=== PATIENT | male | born 1970 | race Hispanic/Latino ===

== ENCOUNTER 2022-06-08 08:48 | Emergency (ER) | payer OTHER, SELFPAY ==
[2022-06-08] VITALS (10 sets, daily range): BP systolic 143–156; BP diastolic 99–111; PULSE 94–98; RESP 14–26; TEMP 36.3; O2SAT 94–100
--- NOTE | ~2022-06-08 | XR_ITS ---
EXAMINATION: XR chest 1V portable DATE: 06/08/2022 09:21 INDICATION: Upper respiratory tract infection presenting with cough and congestion TECHNIQUE: frontal view of the chest was obtained. COMPARISON: Chest CT dated 03/15/2009 FINDINGS: The lungs are clear with no focal airspace opacities, pulmonary edema, pleural effusion or pneumothor ax. The cardiomediastinal silhouette is normal. Minimal upper thoracic levocurvature. IMPRESSION: 1. No acute cardiopulmonary disease. Reviewed, dictated and finalized at location B.
--- NOTE | 2022-06-08 09:03 | ED.URI ---
HPI - URI/Sore Throat General Chief Complaint: Upper Respiratory Infection <JOHAN Wyatt Last Filed: 06/08/22 10:34> Stated Complaint: cough, congestion, pain with cough, <JOHAN Wyatt Last Filed: 06/08/22 10:34> Time Seen by Provider: 06/08/22 08:56 <JOHAN Wyatt Last Filed: 06/08/22 10:34> Source: patient <JOHAN Wyatt Last Filed: 06/08/22 10:34> Mode of arrival: ambulatory <JOHAN Wyatt Last Filed: 06/08/22 10:34> Limitations: no limitations <JOHAN Wyatt Last Filed: 06/08/22 10:34> History of Present Illness HPI Narrative: Patient is a 51 y/o male who presents to the ED with c/o URI symptoms. Patient reports having dry cough, congestion, runny nose, sore throat, sneezing since Saturday night. He has only been using Vicks for his symptoms. Last night, he reported having pain in his lower midsternal chest/lower ribs with coughing or sneezing. The pain continued today which prompted him to go to urgent care. He tested negative for strep, influenza, COVID at the but was referred here. Denies any chest pain at rest. Denies SOB. Denies Hx of heart disease. Denies fever, abdominal pain, nausea, vomiting. <JOHAN Wyatt Last Filed: 06/08/22 10:34> Related Data Allergies/Adverse Reactions: Allergies Allergy/AdvReac Type Severity Reaction Status Date / Time NONE PER PT Allergy Other Uncoded 06/08/22 09:04 <JOHAN Wyatt Last Filed: 06/08/22 10:34> Review of Systems Review of Systems: CONSTITUTIONAL: Denies fever, chills, or sweats. ENT: Reports rhinorrhea, congestion, sore throat, sneezing. CARDIOVASCULAR: Denies chest pain at rest. RESPIRATORY: Reports dry cough. Denies dyspnea. GASTROINTESTINAL: Denies abdominal pain, nausea, vomiting. MUSCULOSKELETAL: Reports rib pain with coughing/sneezing. <Margaret Flor PA-C - Last Filed: 06/08/22 10:34> All systems reviewed & are unremarkable except as noted in HPI and below <Margaret Flor PA-C - Last Filed: 06/08/22 10:34> PMFSH Past Medical History Medical History: Medical History (Updated 06/08/22 @ 10:01 by Margaret Flor PA-C) Diabetes mellitus Mixed hyperlipidemia Polycythemia vera <Margaret Flor PA-C - Last Filed: 06/08/22 10:34> Surgical History Surgical History: Surgical History (Updated 06/08/22 @ 09:20 by Margaret Flor PA-C) History of dental surgery <Margaret Flor PA-C - Last Filed: 06/08/22 10:34> Social History Social History: Social History Smoking status: Never smoker Alcohol intake: never <Margaret Flor PA-C - Last Filed: 06/08/22 10:34> Exam Narrative: GENERAL: Well appearing, well-nourished, non-toxic, in no acute distress. HEAD: Normocephalic, atraumatic. EYES: PERRL/EOMI, conjunctivae clear bilaterally. NOSE: Normal, no drainage. THROAT: Pharynx clear, minimal posterior erythema, no hypertrophy or exudate. MMs moist. NECK: Supple. No adenopathy, no masses. RESPIRATORY: Airway patent, respirations nonlabored. Clear to auscultation bilaterally, no rales, rhonchi, wheezing. Frequent coughing on exam. CARDIOVASCULAR: Regular rate and rhythm without murmurs, rubs, or gallops. Radial pulses 2+ and equal bilaterally. ABDOMINAL: Soft, nontender, nondistended, no hepatosplenomegaly. Normoactive BS. MUSCULOSKELETAL: Moves all extremities. Strength/ROM intact without gross deformities or TTP. No edema. No calf tenderness. Mild tenderness to palpation throughout anterior midsternal chest wall. SKIN: Warm, dry, normal color. No rashes. NEURO: A&O X3. Speech clear. Cranial nerves II-XII grossly intact. Steady gait. No ataxic movements. PSYCHIATRIC: Appropriate mood and affect. Normal interaction. <Margaret Flor PA-C - Last Filed: 06/08/22 10:34> Cou
--- NOTE | 2022-06-08 09:04 | ECG_ITS ---
Measurements Intervals [place] Rate: 96 P: 34 CO: 166 QRS: -6 QRSD: 75 T: 65 QT: 327 QTc: 414 Interpretive Statements SINUS RHYTHM POSSIBLE SEPTAL MYOCARDIAL INFARCTION , OLD [40+ ms Q WAVE IN V1/V2] ABNORMAL ECG NO PREVIOUS ECG AVAILABLE FOR COMPARISON Electronically Signed On 06-08-2022 15:39:48 CDT by Dinesh Hill M.D.
--- NOTE | 2022-06-08 09:18 | PC.NURSE ---
xray at bedside
[2022-06-08] MEDS: KETOROLAC (*BKC) 60 MG/2 ML VIAL IM (09:53)
--- NOTE | 2022-06-08 10:27 | PC.NURSE ---
ERPA aware of blood pressure readings. Okay with discharge and follow up with PCP
== END 2022-06-08 10:28 | disposition home or self-care (01) ==
PROVIDERS: Emergency Provider Emergency Medicine; PCP Family Medicine
DX: J06.9 Acute upper respiratory infection, unspecified (principal); E78.2 Mixed hyperlipidemia; E11.9 Type 2 diabetes mellitus without complications; D45 Polycythemia vera; R94.31 Abnormal electrocardiogram [ECG] [EKG]
CPT/HCPCS: 71045; 93005; 96372; 99283; J1885

== ENCOUNTER 2022-09-19 08:06 | Outpatient (CLI) | payer OTHER, SELFPAY ==
--- NOTE | ~2022-09-19 | XR_ITS ---
AP and lateral views of the right hip Clinical history: Pain Findings: No acute fracture or dislocation is seen. Osseous alignment is anatomic. Right hip and righ t SI joint are preserved. Soft tissues are unremarkable. Impression: No significant abnormality is seen. Reviewed, dictated and finalized at [facility]. LAYER Impression: No significant abnormality is seen.
--- NOTE | ~2022-09-19 | XR_ITS ---
Lumbosacral Spine: AP, oblique, and lateral views Clinical History: Pain Findings: The normal lordotic curve is maintained. The vertebral bodies and posterior elements are i ntact. The intervertebral disc spaces are preserved. The sacroiliac joints are normally outlined. Impression: No significant abnormality. Reviewed, dictated and finalized at [facility]. [employer]ELOPER [employer] Impression: No significant abnormality.
== END 2022-09-19 08:07 | disposition home or self-care (01) ==
PROVIDERS: PCP Family Medicine; Visit Provider Nurse Practitioner Gerontology
DX: M25.559 Pain in unspecified hip (principal); M54.9 Dorsalgia, unspecified
CPT/HCPCS: 72110; 73502

== ENCOUNTER 2024-07-20 12:10 | Observation (INO) | payer OTHER, SELFPAY ==
--- NOTE | ~2024-07-20 | CT_ITS ---
CTA brain carotid Ordering provider: Margaret Flor PA-C History: . dizziness, tingling/numbness R side face, PLASCENCIA . Comparison: Is Technique: CT angiogram head and neck was performed following timed intravenous injection of contrast . Thin slice axial images and reformatted coronal images were obtained. Three dimensional reformatted images of the brain were also obtained using a [employer] workstation. Radiation reduction technique utilized. The dose-length product was 1114.17 mGy-cm. 100 mL Omnipaque 350 was given IV. FINDINGS: HEAD: --ANTERIOR AND MIDDLE CEREBRAL ARTERIES AND BRANCHES: Normal caliber and contour. --INTERNAL CAROTID ARTERIES: no significant stenosis. No occlusion. --BASILAR ARTERY AND BRANCHES: Normal caliber and contour. No atheromatous disease. --POSTERIOR CEREBRAL ARTERIES: Normal caliber and contour --POSTERIOR COMMUNICATING ARTERIES: The right is seen and continues as posterior cerebral artery. The left is not visualized which is probably related to congenital absence or small size. --ANEURYSM: None visualized. --BRAIN: Please refer to report of CT head performed the same day. --BONES AND SUPERFICIAL SOFT TISSUES: Please refer to report of CT head performed the same day. --PARANASAL SINUSES AND MASTOIDS: Bilateral maxillary sinus disease. NECK: --RIGHT CERVICAL CAROTID SYSTEM: Normal caliber and contour. Percent stenosis per NASCET criteria is 0%. No carotid dissection. Otherwise, no significant atheromatous disease or stenosis of the cervica l carotid system. --LEFT CERVICAL CAROTID SYSTEM: Normal caliber and contour. Percent stenosis per NASCET criteria is 0%. No carotid dissection. Otherwise, no significant atheromatous disease or stenosis of the cervical carotid system. --VERTEBRAL ARTERIES: Normal caliber and contour. --VISUALIZED AORTIC ARCH AND BRANCHING VESSELS: no significant stenosis. --SOFT TISSUES: Normal. --CERVICAL SPINE: Age appropriate degenerative changes. IMPRESSION: 1. Normal CTA head and neck. Percent stenosis per NASCET criteria is 0%. Reviewed, dictated and finalized at location A. TRUCK OPERATOR
--- NOTE | ~2024-07-20 | XR_ITS ---
XR chest 1V Ordering provider: Margaret Flor PA-C History: 53 years Male with . R. facial droop, numbness . Comparison: None. FINDINGS: MEDIASTINUM: The cardiac silhouette is not enlarged. LUNGS: No infiltrates, effusions or pneumothorax. OTHER: No free air under the diaphragm. IMPRESSION: No acute cardiopulmonary pathology. Reviewed, dictated and finalized at location A. H WAGON OPERATOR
--- NOTE | ~2024-07-20 | CT_ITS ---
CT brain wo con Ordering provider: Margaret Flor PA-C History: 53 years Male with . R facial droop/numbness . Comparison: None. Technique: CT of the head without contrast. Radiation reduction technique utilized.The dose-length pr oduct was 605.33 mGy-cm. FINDINGS: BRAIN PARENCHYMA AND CSF SPACES: No midline shift, mass effect or hemorrhage. The brain parenchyma a nd CSF spaces are otherwise normal. VISUALIZED PARANASAL SINUSES: Well aerated. MASTOIDS: Well aerated. BONES: The bones appear intact. SOFT TISSUES: Visualized nasopharynx is normal. Superficial soft tissues are normal. IMPRESSION: No acute intracranial findings. Reviewed, dictated and finalized at location A. H ELECTRICIAN
--- NOTE | ~2024-07-20 | MR_ITS ---
EXAMINATION: MR brain/brain stem wo/w con DATE: 07/21/2024 11:57 INDICATION: Paresthesias. Left hemiparesis. TECHNIQUE: Magnetic resonance imaging (MRI) of the brain and brainstem was performed without and with 18 mL MultiHance intravenous contrast. COMPARISON: Brain MRI 01/21/2018, head CT 07/20/2024 FINDINGS: There is no intracranial hemorrhage, acute infarction, or abnormal intracranial mass lesion . There are scattered areas of nonspecific increased T2-weighted signal intensity in the cerebral whi te matter, which is within normal limits for the patient's age. The ventricles are normal in size. Th ere is mild mucosal thickening in left maxillary sinus. The orbits are normal. There is a trace left mastoid effusion. IMPRESSION: 1. Normal aging brain. Reviewed, dictated and finalized at location A. FIC SERGEANT IMPRESSION: 1. Normal aging brain.
[2024-07-20 12:30] VITALS: BP 145/99; PULSE 89; RESP 17; TEMP 36.6; O2SAT 97
--- NOTE | 2024-07-20 12:34 | ECG_ITS ---
Test Date: 2024-07-20 17:07:09 Measurements Intervals [place] Rate: 90 P: 44 CO: 160 QRS: -28 QRSD: 72 T: 78 QT: 326 QTc: 399 Interpretive Statements SINUS RHYTHM DELAYED PRECORDIAL R/S TRANSITION INFERIOR INFARCT, AGE INDETERMINATE ABNORMAL ECG No previous ECG available for comparison Electronically Signed On 07-20-2024 19:11:13 [employer]ACHINE by Rogerio Colunga D.O.
--- NOTE | 2024-07-20 14:36 | ED.NEUROSD ---
HPI - Neuro Symptoms/Deficit General Chief Complaint: Neuro Symptoms/Deficit <JOHAN Wyatt Last Filed: 07/24/24 17:34> Stated Complaint: facial droop r side, numbness started when woke up <JOHAN Wyatt Last Filed: 07/24/24 17:34> Time Seen by Provider: 07/20/24 14:36 <JOHAN Wyatt Last Filed: 07/24/24 17:34> Focused HPI: Patient is a 53 y/o male who presents to the ED with c/o tingling to the R side of his face. Patient reports he woke up around 0415 this morning with tingling and a numbness sensation in his R sided face. States his R sided face feels weak and droopy. He also reports a diffuse PLASCENCIA since waking up. He took aspirin and gabapentin for this w/o improvement. Reports tingling in his hands and feet bilaterally. Denies weakness of extremities. States he has had similar sx's in the past which affected his L side. Was thought to be r/t to PLASCENCIA. Reports difficulty focusing, mild dizziness, twitching of his R eye, intermittent shooting pain in his R triceps region. Denies CP, SOB, slurred speech, confusion. GENERAL: Well-appearing, obese with BMI of 30.6, and in no acute distress. HEAD: Normocephalic, atraumatic. CHEST: Clear to auscultation. ?No respiratory distress. HEART: Regular rate and rhythm.? NEURO: ?Alert and oriented x3. CN 2-12 intact. No focal deficits. Moves all extremities equally. Subjective decreased sensation to right-sided face. No facial droop. Patient screened in triage and initial orders placed.? ?Additional care and disposition to be based upon?diagnostic testing and treatment. <JOHAN Wyatt Last Filed: 07/24/24 17:34> Source: patient <JOHAN Wyatt Last Filed: 07/24/24 17:34> Mode of arrival: ambulatory <JOHAN Wyatt Last Filed: 07/24/24 17:34> Limitations: no limitations <Margaret Flor PA-C - Last Filed: 07/24/24 17:34> Related Data Allergies/Adverse Reactions: Allergies Allergy/AdvReac Type Severity Reaction Status Date / Time No Known Allergies Allergy Verified 09/19/22 07:19 <JOHAN Wyatt Last Filed: 07/24/24 17:34> Review of Systems Review of Systems: CONSTITUTIONAL: Denies fever EYES: Denies visual changes SKIN: Denies rash NEUROLOGIC: Reports headache, numbness, weakness. <JOHAN Banuelos Last Filed: 07/24/24 17:59> All systems reviewed & are unremarkable except as noted in HPI and below <Riya Banda PA-C - Last Filed: 07/24/24 17:59> [facility] Past Medical History Medical History: Medical History Abnormal EKG Anxiety and depression Arm paresthesia, left Back pain Colon cancer screening Diabetes mellitus Erectile dysfunction Hip pain Mixed anxiety and depressive disorder Mixed hyperlipidemia Neuropathy New onset type 2 diabetes mellitus Polycythemia vera Vertigo <JOHAN Wyatt Last Filed: 07/24/24 17:34> Surgical History Surgical History: Surgical History (Updated 07/21/24 @ 00:05 by Dennis Mills APRN) History of dental surgery <JOHAN Wyatt Last Filed: 07/24/24 17:34> Family History Family History: Family History Mother Epilepsy Cerebrovascular accident Cancer Acute myocardial infarction <JOHAN Wyatt Last Filed: 07/24/24 17:34> Social History Social History: Social History Social History: Smoking status: Never smoker Second hand tobacco smoke exposure: No Alcohol intake: current Drinks per week: 1 Substance use: never Substance use type: does not use Do You Feel Safe in your Home?: Yes Lack of Transportation: No Lack of Food: Never True Current Housing: I Have Housing Concerned About Future Housing: No Difficulty Paying Gas/Electric Bills: No Difficulty Paying for Meds: No Currently Unemployed: No Education: High School Diploma/GED Difficulty w/ Childcare or Family Care: No Living arrangements: with family Occupation/Education: occupation Gender identity (if verbalized by the patient): Male Sexual Orientation (if Verbalized by the Patient): Straight or Heterosexual Spiritual care concerns: No <Margaret Flor PA-C - Last Filed: 07/24/24 17:34> Exam Narrative: GENERAL: Well-appearing, well-nourished, and in no acute distress. HEAD: Normocephalic, atraumatic. EYES: PERRLA and EOMI. ENT: Nares clear, no rhinorrhea or epistaxis. Mucous membranes moist. Oropharynx without tonsillar hypertrophy exudate or other lesions. Bilateral TMs pearly donovan non-bulging NECK: Supple. No adenopathy or masses. CHEST: Clear to auscultation. No respiratory distress. No wheezes rales or rhonchi HEART: Regular rate and rhythm. No murmur heard. Normal peripheral pulses. ABDOMEN: Soft, nontender, nondistended, normal active bowel sounds. EXTREMITIES: Normal range of motion. No edema. Strength equal in bilateral upper and lower extremities (5/5) SKIN: Warm, dry, no rash. NEURO: No focal deficits. Alert and oriented x3. Cranial nerves 2-12 grossly intact PSYCH: Normal mood and affect <Riya Banda PA-C - Last Filed: 07/24/24 17:59> Course Consultations Consultation #1: Spoke with Dr. Amaro about patient and workup who recommends admission for MRI for further evaluation <Riya Banda PA-C - Last Filed: 07/24/24 17:59> Consultation #2: Spoke with hospitalist about patient and workup who accepts admission <JOHAN Banuelos Last Filed: 07/24/24 17:59> Vital Signs Vital signs: Vital Signs Temperature 97.8 F 07/20/24 12:30 Pulse Rate 89 07/20/24 12:30 Respiratory Rate 17 07/20/24 12:30 Blood Pressure 145/99 H 07/20/24 12:30 Pulse Oximetry 97 07/20/24 12:30 Oxygen Delivery Room Air 07/20/24 12:30 Temperature 96.9 F L 07/21/24 14:00 Pulse Rate 75 07/21/24 14:00 Respiratory Rate 18 07/21/24 14:00 Blood Pressure 149/80 H 07/21/24 14:00 Pulse Oximetry 97 07/21/24 14:00 Oxygen Delivery Room Air 07/21/24 00:00 <Margaret Flor PA-C - Last Filed: 07/24/24 17:34> Vital Signs Temperature 97.8 F 07/20/24 12:30 Pulse Rate 89 07/20/24 12:30 Respiratory Rate 17 07/20/24 12:30 Blood Pressure 145/99 H 07/20/24 12:30 Pulse Oximetry 97 07/20/24 12:30 Oxygen Delivery Room Air 07/20/24 12:30 Temperature 96.9 F L 07/21/24 14:00 Pulse Rate 75 07/21/24 14:00 Respiratory Rate 18 07/21/24 14:00 Blood Pressure 149/80 H 07/21/24 14:00 Pulse Oximetry 97 07/21/24 14:00 Oxygen Delivery Room Air 07/21/24 00:00 <JOHAN Banuelos Last Filed: 07/24/24 17:59> MDM - Neuro Symptoms/Deficit MDM Narrative Medical decision making narrative: MSE by SABAS in triage. <JOHAN Wyatt Last Filed: 07/24/24 17:34> MSE by SABAS in triage. patient presents to the emergency department for paresthesias ongoing today. History of uncontrolled diabetes, hypertension, hyperlipidemia. CBC metabolic panel without concerning findings. His blood sugar is quite elevated. He does admit to not having taking any antidiabetic medications for some time. CT brain as well as CTA head and neck without acute findings. Spoke with Dr. Amaro about patient and workup who recommends admission for MRI for further evaluation. Spoke with hospitalist about patient and workup who accepts admission <Riya Banda PA-C - Last Filed: 07/24/24 17:59> Differential Diagnosis Differential diagnosis: Likely subarachnoid hemorrhage, peripheral neuropathy, cerebrovascular accident, multiple sclerosis and transient cerebral ischemia <JOHAN Banuelos Last Filed: 07/24/24 17:59> Lab Data Attestation: I reviewed the patient's lab results. <Riya Banda PA-C - Last Filed: 07/24/24 17:59> Result diagrams: 07/21/24 06:08 07/21/24 06:08 <Margaret Flor PA-C - Last Filed: 07/24/24 17:34> Labs: Lab Results 07/20/24 Range/Units 14:44 WBC 6.3 (4.5-10.0) K/mm3 RBC 5.63 (4.6-6.20) M/mm3 Hgb 18.7 H (14.0-18.0) g/dL Hct 52.7 H (42.0-52.0) % MCV 93.6 (80-100) fl MCH 33.2 (26-34) pg MCHC 35.5 (32-36) g/dl RDW 14.3 (11.5-14.5) % Plt Count 201 (150-375) k/mm3 MPV 9.9 (7.4-10.4) fl Immature Gran % (Auto) 0.2 (0-0.5) % Neut % (Auto) 61.0 (45.5-73.1) % Lymph % (Auto) 28.8 (18.3-44.2) % [place] % (Auto) 6.2 (2.6-8.5) % Eos % (Auto) 3.3 (0-4.4) % Baso % (Auto) 0.5 (0.2-1.2) % Lymph # (Auto) 1.82 (0.9-3.2) K/mm3 [place] # (Auto) 0.4 (0.1-0.6) K/mm3 Eos # (Auto) 0.2 (0-0.3) K/mm3 Baso # (Auto) 0.0 (0.0-0.1) K/mm3 Abs Immat Gran (auto) 0.01 (0.00-0.031) K/mm3 Absolute Neuts (auto) 3.9 (1.3-6.7) K/mm3 Absolute Nucleated RBC 0.000 (0.0-0.012) K/mm3 Nucleated RBC % 0.0 (0.0-0.2) % PT 13.7 (11.1-14.7) Seconds INR 1.0 APTT 26.3 (22.3-36.8) Seconds Sodium 137 (137-145) mmol/L Potassium 4.5 (3.4-5.0) mmol/L Chloride 96 L (98-107) mmol/L Carbon Dioxide 32 H (22-30) mmol/L Anion Gap 9 (4-12) mmol/L BUN 17 (9-20) mg/dL Creatinine 0.90 (0.7-1.3) mg/dL Estim Creat Clear Calc 84 ml/min Estimated GFR > 60 (59 - ) Glucose 364 H (65-110) mg/dL Hemoglobin A1c 12.8 H (<5.7) % Calcium 9.7 (8.4-10.2) mg/dL Total Bilirubin 0.7 (0.2-1.3) mg/dL AST 33 (17-59) U/L ALT 52 H (6-50) U/L Alkaline Phosphatase 133 H (38-126) U/L Troponin I < 0.012 (0.000-0.034) ng/mL Total Protein 8.0 (6.3-8.2) g/dL Albumin 4.8 (3.5-5.1) g/dL <Margaret Flor PA-C - Last Filed: 07/24/24 17:34> Lab Results 07/20/24 Range/Units 14:44 WBC 6.3 (4.5-10.0) K/mm3 RBC 5.63 (4.6-6.20) M/mm3 Hgb 18.7 H (14.0-18.0) g/dL Hct 52.7 H (42.0-52.0) % MCV 93.6 (80-100) fl MCH 33.2 (26-34) pg MCHC 35.5 (32-36) g/dl RDW 14.3 (11.5-14.5) % Plt Count 201 (150-375) k/mm3 MPV 9.9 (7.4-10.4) fl Immature Gran % (Auto) 0.2 (0-0.5) % Neut % (Auto) 61.0 (45.5-73.1) % Lymph % (Auto) 28.8 (18.3-44.2) % [place] % (Auto) 6.2 (2.6-8.5) % Eos % (Auto) 3.3 (0-4.4) % Baso % (Auto) 0.5 (0.2-1.2) % Lymph # (Auto) 1.82 (0.9-3.2) K/mm3 [place] # (Auto) 0.4 (0.1-0.6) K/mm3 Eos # (Auto) 0.2 (0-0.3) K/mm3 Baso # (Auto) 0.0 (0.0-0.1) K/mm3 Abs Immat Gran (auto) 0.01 (0.00-0.031) K/mm3 Absolute Neuts (auto) 3.9 (1.3-6.7) K/mm3 Absolute Nucleated RBC 0.000 (0.0-0.012) K/mm3 Nucleated RBC % 0.0 (0.0-0.2) % PT 13.7 (11.1-14.7) Seconds INR 1.0 APTT 26.3 (22.3-36.8) Seconds Sodium 137 (137-145) mmol/L Potassium 4.5 (3.4-5.0) mmol/L Chloride 96 L (98-107) mmol/L Carbon Dioxide 32 H (22-30) mmol/L Anion Gap 9 (4-12) mmol/L BUN 17 (9-20) mg/dL Creatinine 0.90 (0.7-1.3) mg/dL Estim Creat Clear Calc 84 ml/min Estimated GFR > 60 (59 - ) Glucose 364 H (65-110) mg/dL Hemoglobin A1c 12.8 H (<5.7) % Calcium 9.7 (8.4-10.2) mg/dL Total Bilirubin 0.7 (0.2-1.3) mg/dL AST 33 (17-59) U/L ALT 52 H (6-50) U/L Alkaline Phosphatase 133 H (38-126) U/L Troponin I < 0.012 (0.000-0.034) ng/mL Total Protein 8.0 (6.3-8.2) g/dL Albumin 4.8 (3.5-5.1) g/dL <JOHAN Banuelos Last Filed: 07/24/24 17:59> Imaging Data Radiologist's impression: ITS Impressions Head CT 07/20/24 12:50 IMPRESSION: No acute intracranial findings. Chest X-Ray 07/20/24 12:58 IMPRESSION: No acute cardiopulmonary pathology. Head/Neck CTA 07/20/24 15:44 IMPRESSION: 1. Normal CTA head and neck. Percent stenosis per NASCET criteria is 0%. <Riya Banda PA-C - Last Filed: 07/24/24 17:59> Critical Care Time Critical Care Time Critical Care Time: No <Riya Banda PA-C - Last Filed: 07/24/24 17:59> Discharge Plan Discharge Clinical Impression: Paresthesia, Diabetes mellitus <Margaret Flor PA-C - Last Filed: 07/24/24 17:34> Patient Disposition: Still a Patient <JOHAN Wyatt Last Filed: 07/24/24 17:34> Condition: Stable <JOHAN Wyatt Last Filed: 07/24/24 17:34>
[2024-07-20 14:57] LABS: Basophils Percent Auto 0.5 % (0.2-1.2); Eosinophils Absolute Auto 0.2 K/mm3 (0-0.3); Eosinophils Percent Auto 3.3 % (0-4.4); Hematocrit 52.7 % (42.0-52.0); Hemoglobin 18.7 g/dL (14.0-18.0); Immature Granulocyte Absolute 0.01 K/mm3 (0.00-0.031); Immature Granulocyte Percent A 0.2 % (0-0.5); Lymphocytes Absolute Auto 1.82 K/mm3 (0.9-3.2); Lymphocytes Percent Auto 28.8 % (18.3-44.2); Mean Corpuscular HGB Conc 35.5 g/dl (32-36); Mean Corpuscular Hemoglobin 33.2 pg (26-34); Mean Corpuscular Volume 93.6 fl (80-100); Mean Platelet Volume 9.9 fl (7.4-10.4); Monocytes Absolute Auto 0.4 K/mm3 (0.1-0.6); Monocytes Percent Auto 6.2 % (2.6-8.5); Neutrophils Absolute Auto 3.9 K/mm3 (1.3-6.7); Platelet Count Result 201 k/mm3 (150-375); Red Blood Count 5.63 M/mm3 (4.6-6.20); Red Cell Distribution Width 14.3 % (11.5-14.5); White Blood Count 6.3 K/mm3 (4.5-10.0)
[2024-07-20 15:05] LABS: Prothrombin Time 13.7 Seconds (11.1-14.7)
[2024-07-20 15:06] LABS: Partial Thromboplastin Time 26.3 Seconds (22.3-36.8)
[2024-07-20 15:12] LABS: Alanine Aminotransferase 52 U/L (6-50); Albumin Level 4.8 g/dL (3.5-5.1); Alkaline Phosphatase 133 U/L (38-126); Anion Gap 9 mmol/L (4-12); Aspartate Amino Transferase 33 U/L (17-59); Bilirubin,Total 0.7 mg/dL (0.2-1.3); Blood Urea Nitrogen 17 mg/dL (9-20); Calcium 9.7 mg/dL (8.4-10.2); Carbon Dioxide 32 mmol/L (22-30); Chloride 96 mmol/L (98-107); Estimated CRCL calculation 84 ml/min; Estimated Glomerular Filt Rate > 60; Glucose 364 mg/dL (65-110); Potassium 4.5 mmol/L (3.4-5.0); Sodium 137 mmol/L (137-145)
[2024-07-20 15:23] LABS: Troponin I < 0.012 ng/mL (0.000-0.034)
[2024-07-20 19:39] VITALS: BP 143/92; PULSE 90; RESP 20; TEMP 36.8; O2SAT 97
[2024-07-20] MEDS: ACETAMINOPHEN 500 MG TABLET 1000 MG PO (20:04)
[2024-07-20] MEDS: diphenhydrAMINE HCl INJ 50 MG/ML VIAL 25 MG IV PUSH (20:05)
[2024-07-20] MEDS: METOCLOPRAMIDE HCL INJ 10 MG/2 ML VIAL IV PUSH (20:05)
[2024-07-20] MEDS: SODIUM CHLORIDE 0.9% IV 1,000 ML 999 ML IV CONT (20:05)
[2024-07-20 20:14] VITALS: BP 141/98; PULSE 89; RESP 16; O2SAT 99
[2024-07-20 21:16] LABS: Hemoglobin A1C 12.8 % (<5.7)
[2024-07-20 21:55] VITALS: BMI 30.6
[2024-07-20 22:00] VITALS: BP 143/81; PULSE 77; RESP 16; TEMP 36.3; O2SAT 92
--- NOTE | 2024-07-20 22:02 | P.HP_ITS ---
H&P: HPI History of Present Illness Date/Time: 07/20/24 22:02 Chief Complaint: Right-sided paresthesias, right facial numbness Narrative: This is a 53-year-old male patient with past medical history of polycythemia vera hypertension hyperlipidemia and type 2 diabetes who was previously on oral medications for his diabetes but once he got down to hemoglobin A1c of 7 he quit taking them. Patient actually quit taking all of his medications an undetermined length of time ago. Patient reports chronic numbness to the left side of his body stating it affects his entire left side of his body. Upon awakening on the morning of 1124 patient reported right-sided numbness around his face below his eye and maxilla area. He also noted numbness and tingling to his right hand and right foot. Workup in the emergency department significant for hyperglycemia of 364, mild hypertension, elevated hemoglobin and hematocrit with normal renal function. Hemoglobin A1c found to be highly elevated at 12.8%. Emergency department consulted with Neurology who recommended patient be admitted for MRI to rule out CVA. Review of Systems Review of Systems: All systems reviewed & are unremarkable except as noted in HPI and below PMFSH Past Medical History Medical History Abnormal EKG Anxiety and depression Arm paresthesia, left Back pain Colon cancer screening Diabetes mellitus Erectile dysfunction Hip pain Mixed anxiety and depressive disorder Mixed hyperlipidemia Neuropathy New onset type 2 diabetes mellitus Polycythemia vera Vertigo Surgical History Surgical History (Updated 07/21/24 @ 00:05 by Dennis Mlils APRN) History of dental surgery Family History Family History Mother Epilepsy Cerebrovascular accident Cancer Acute myocardial infarction Social History Social History Social History: Smoking status: Never smoker Second hand tobacco smoke exposure: No Alcohol intake: current Drinks per week: 1 Substance use: never Substance use type: does not use Do You Feel Safe in your Home?: Yes Lack of Transportation: No Lack of Food: Never True Current Housing: I Have Housing Concerned About Future Housing: No Difficulty Paying Gas/Electric Bills: No Difficulty Paying for Meds: No Currently Unemployed: No Education: High School Diploma/GED Difficulty w/ Childcare or Family Care: No Living arrangements: with family Occupation/Education: occupation Gender identity (if verbalized by the patient): Male Sexual Orientation (if Verbalized by the Patient): Straight or Heterosexual Spiritual care concerns: No Meds Home Medications and Allergies Home Medications Medication Instructions Recorded Confirmed Type blood-glucose sensor (FreeStyle #1 ea 09/19/22 07/20/24 Rx Ellen 3 Sensor device) blood-glucose sensor (Dexcom G6 #3 ea 09/24/22 07/20/24 Rx Sensor device) Allergies Allergy/AdvReac Type Severity Reaction Status Date / Time No Known Allergies Allergy Verified 09/19/22 07:19 Vital Signs Vital Signs - 24 hr 07/20/24 12:30 07/20/24 19:39 07/20/24 20:14 Temperature 36.6 C 36.8 C Pulse Rate 89 90 89 Respiratory Rate 17 20 16 Blood Pressure 145/99 H 143/92 H 141/98 H Pulse Oximetry 97 97 99 Oxygen Delivery Room Air Exam Narrative: GENERAL: Well-appearing, well-nourished, and in no acute distress. HEAD: Normocephalic, atraumatic. ENT:? Mucous membranes moist. CHEST: Clear to auscultation.? No respiratory distress. HEART: Regular rate and rhythm. ? Normal peripheral pulses. ABDOMEN: Soft, nontender, nondistended. EXTREMITIES: Normal range of motion. No peripheral edema. SKIN: Warm dry normal color NEURO: Alert and oriented x3.Moves all extremities well, 5/5 strength. No appreciable facial droop, numbness and tingling to hands feet and face. PSYCH: Normal mood and affect H&P: Results Labs Labs: Short CBC 07/20/24 Range/Units 14:44 WBC 6.3 (4.5-10.0) K/mm3 Hgb 18.7 H (14.0-18.0) g/dL Hct 52.7 H (42.0-52.0) % Plt Count 201 (150-375) k/mm3 BMP 07/20/24 14:44 Sodium 137 Potassium 4.5 Chloride 96 L Carbon Dioxide 32 H BUN 17 Creatinine 0.90 Glucose 364 H Calcium 9.7 Cardiac Enzymes 07/20/24 Range/Units 14:44 Troponin I < 0.012 (0.000-0.034) ng/mL Liver Function 07/20/24 Range/Units 14:44 Total Bilirubin 0.7 (0.2-1.3) mg/dL AST 33 (17-59) U/L ALT 52 H (6-50) U/L Alkaline Phosphatase 133 H (38-126) U/L Albumin 4.8 (3.5-5.1) g/dL Pulse Oximetry SpO2 results: 92-99% on room air Attestation: I personally reviewed and interpreted this pulse oximetry as follows: Interpretation: no need for supplemental oxygenation at this time ECG Attestation: I personally reviewed and interpreted this ECG as follows: ECG completion date: 07/20/24 ECG completion time: 17:07 Prior ECG tracings: not available for review Interpretation: sinus rhythm rate of 90 W[place] interval 160 QRS duration 72 QTC 399 QRS axis -28 physiologic left axis deviation, no STEMI or acute ischemic changes Imaging Chest x-ray: Radiologist's impression: XR chest 1V Ordering provider: Margaret Flor PA-C History: 53 years Male with . R. facial droop, numbness . Comparison: None. FINDINGS: MEDIASTINUM: The cardiac silhouette is not enlarged. LUNGS: No infiltrates, effusions or pneumothorax. OTHER: No free air under the diaphragm. IMPRESSION: No acute cardiopulmonary pathology. Reviewed, dictated and finalized at location A. GE CONTROL COORDINATOR CT scan - head: Radiologist's impression: CTA brain carotid Ordering provider: Margaret Flor PA-C History: . dizziness, tingling/numbness R side face, PLASCENCIA . Comparison: Is Technique: CT angiogram head and neck was performed following timed intravenous injection of contrast. Thin slice axial images and reformatted coronal images were obtained. Three dimensional reformatted images of the brain were also obtained using a [employer] workstation. Radiation reduction technique utilized. The dose-length product was 1114.17 mGy- cm. 100 mL Omnipaque 350 was given IV. FINDINGS: HEAD: --ANTERIOR AND MIDDLE CEREBRAL ARTERIES AND BRANCHES: Normal caliber and contour. --INTERNAL CAROTID ARTERIES: no significant stenosis. No occlusion. --BASILAR ARTERY AND BRANCHES: Normal caliber and contour. No atheromatous disease. --POSTERIOR CEREBRAL ARTERIES: Normal caliber and contour --POSTERIOR COMMUNICATING ARTERIES: The right is seen and continues as posterior cerebral artery. The left is not visualized which is probably related to congenital absence or small size. --ANEURYSM: None visualized. --BRAIN: Please refer to report of CT head performed the same day. --BONES AND SUPERFICIAL SOFT TISSUES: Please refer to report of CT head performed the same day. --PARANASAL SINUSES AND MASTOIDS: Bilateral maxillary sinus disease. NECK: --RIGHT CERVICAL CAROTID SYSTEM: Normal caliber and contour. Percent stenosis per NASCET criteria is 0%. No carotid dissection. Otherwise, no significant atheromatous disease or stenosis of the cervical carotid system. --LEFT CERVICAL CAROTID SYSTEM: Normal caliber and contour. Percent stenosis per NASCET criteria is 0%. No carotid dissection. Otherwise, no significant atheromatous disease or stenosis of the cervical carotid system. --VERTEBRAL ARTERIES: Normal caliber and contour. --VISUALIZED AORTIC ARCH AND BRANCHING VESSELS: no significant stenosis. --SOFT TISSUES: Normal. --CERVICAL SPINE: Age appropriate degenerative changes. IMPRESSION: 1. Normal CTA head and neck. Percent stenosis per NASCET criteria is 0%. Reviewed, dictated and finalized at location A. GE CONTROL COORDINATOR Assessment and Plan Assessment and plan (1) Numbness and tingling of right side of face: Code(s): R20.0 - Anesthesia of skin; R20.2 - Paresthesia of skin Status: Acute Assessment and Plan: -admit for MRI and Neurology consult to rule out CVA -aspirin given -chronic left sided numbness/tingling, new right sided same symptoms onset upon awakening 07/20/24 -uncontrolled diabetes, stopped meds when A1c got to 7 -ordered lipid panel, MRI, echo with bubble study for possible stroke workup (2) Polycythemia vera: Code(s): D45 - Polycythemia vera Status: Acute Assessment and Plan: -continue aspirin daily (3) Diabetes mellitus: Code(s): E11.9 - Type 2 diabetes mellitus without complications Status: Acute Assessment and Plan: -A1c 12.8 -no current medications -IV LR 100 mL/hr overnight -high dose SSI (4) Mixed hyperlipidemia: Code(s): E78.2 - Mixed hyperlipidemia Status: Acute Assessment and Plan: -Lipid panel in AM -patient previously on Crestor 5 mg (5) HTN (hypertension): Code(s): I10 - Essential (primary) hypertension Status: Acute Assessment and Plan: -not currently taking any medications -stopped all meds a while ago Plan consult condominium property manager diet: Carb consistent and heart healthy code status: Full code Quality VTE Prophylaxis VTE prophylaxis: pharmacologic ordered Dictation performed by [employer] direct speech recognition software, therefore electrode turner and finisher variants and typographical errors may occur. Hospitalist [facility] Advance Care Plan I have confirmed that the patient's Advanced Care Plan is present, code status is documented, or surrogate decision maker is listed in patient medical record.: Yes Medication Reconciliation I have utilized all available resources to obtain, update and review the patients current medications (includes all prescriptions, OTC, herbals, cannabis, and nutritional supplements).: Yes
--- NOTE | 2024-07-20 22:10 | PC.NURSE ---
Patient denies taking any home meds routinely; patient states he did take an 81mg ASA and a gabapentin today from an old prescription. Patient states he has a history of diabetes, does not check sugars at home and denies taking any medication to treat diabetes. Admission report provided to BOB Moon.
[2024-07-20 22:25] VITALS: BP 142/99; PULSE 99; RESP 17; TEMP 36.7; O2SAT 99
[2024-07-20] MEDS: LACTATED RINGERS 1,000 ML 100 ML IV CONT (23:56)
[2024-07-20] MEDS: ASPIRIN 81 MG CHEWABLE TABLET 324 MG PO (23:57)
--- NOTE | 2024-07-21 | ECHO_ITS ---
Patient Info Name: Dax Márquez Age: 53 years : 1970 Gender: Male Ht: 66 in Wt: 189 lbs BSA: 2.02 m2 HR: 76 bpm BP: 142 / 84 mmHg Heart Rhythm: Sinus Rhythm Technical Quality: Good Exam Date: 07/21/2024 3:06 PM Exam Location: Echo Lab Patient Status: Outpatient Admit Date: 07/20/2024 Staff Ordering Physician: Dennis Mills APRN Wet [employer] Sugar Bin Operator: Sondra Choe RDCS Attending Provider: Maria Guadalupe Mchugh APRN Referring Physician: Gene TREJO; Exam Type: CA echo doppler w bubble study Study Info Indications - stroke Complete two-dimensional, color flow and Doppler transthoracic echocardiogram is performed with agitated saline. Contrast/Agitated Saline Contrast/Ag. Saline: Agitated Saline Amount: 20.00 ml Existing IV Access: Yes IV Access Condition: patent with no signs of infiltration Summary 1. Left ventricular chamber dimension is normal. 2. Ventricular septum is sigmoid shaped. No resting LVOT obstruction. 3. Left ventricular systolic function is normal, estimated at 60-65%. 4. The left ventricular diastolic function is grade I diastolic dysfunction. 5. E/e' 10 is mildly elevated. 6. Left atrial chamber dimension is mildly enlarged. 7. There is mild aortic valve sclerosis. 8. There is mild aortic valve regurgitation. 9. There is trace mitral valve regurgitation. 10. No pulmonary hypertension, estimated pulmonary arterial systolic pressure is 23 mmHg. Left Ventricle E/e' 10 is mildly elevated. Ventricular septum is sigmoid shaped. No resting LVOT obstruction. Left ventricular chamber dimension is normal. Left ventricular systolic function is normal, estimated at 60-65%. The left ventricular diastolic function is grade I diastolic dysfunction. Right Ventricle Right ventricular systolic function is normal and with normal TAPSE 1.9 cm. Right ventricular chamber dimension is normal. Left Atria Left atrial chamber dimension is mildly enlarged. Right Atria Right atrial chamber dimension is normal. Atrial Septum Agitated saline injection with and without valsalva maneuver opacifed right side cardiac chambers without shunt to left side cardiac chambers. Intact interatrial septum visualized by 2D and agitated saline imaging. Aortic Valve The aortic valve is trileaflet. There is mild aortic valve sclerosis. There is no aortic valve stenosis. There is mild aortic valve regurgitation. Pulmonic Valve There is no pulmonic regurgitation. Mitral Valve There is no mitral valve stenosis. There is trace mitral valve regurgitation. Tricuspid Valve There is no tricuspid valve regurgitation. No pulmonary hypertension, estimated pulmonary arterial systolic pressure is 23 mmHg. Pericardium/Pleural There is no pericardial effusion. Inferior Vena Cava Normal inferior vena cava with >50% collapse upon inspiration consistent with normal right atrial pressure, 5 mmHg. Aorta The aortic root size at the sinus of Valsalva is normal. Left Ventricular Outflow Tract Name Value Normal LVOT 2D LVOT Diameter 2.0 cm LVOT Doppler LVOT Peak Gradient 4 mmHg LVOT Mean Gradient 2 mmHg LVOT VTI 18 cm LVOT VTI/AV VTI Ratio 0.8 LVOT Stroke Volume 58 ml LVOT CO 4.4 l/min LVOT CI 2.2 l/min/m2 Pulmonic Valve Name Value Normal RVOT Doppler RVOT Peak Gradient 2 mmHg PV Doppler PV Peak Gradient 3 mmHg PV Regurgitation Doppler OH Peak End Diastolic Velocity 76 cm/s Mitral Valve Name Value Normal MV Doppler MV Decel [place] 352 cm/s2 MV PHT 63 ms MV Area (PHT) 3.5 cm2 4.0-5.0 MV Diastolic Function MV E Peak Velocity 77 cm/s MV A Peak Velocity 103 cm/s MV E/A 0.7 MV Decel Time 218 ms MV Annular TDI MV E/e' (Septal) 13.0 <=8.0 MV E/e' (Lateral) 9.2 <=8.0 MV E/e' (Average) 11.1 Tricuspid Valve Name Value Normal TV Regurgitation Doppler TR Peak Velocity 212 cm/s TR Peak Gradient 18 mmHg Estimated PAP/RSVP RA Pressure 5 mmHg <=5 PA Systolic Pressure 23 mmHg <36 RV Systolic Pressure 23 mmHg <36 Aorta Name Value Normal Ascending Aorta Ao Root Diameter (MM) 3.1 cm Ao Root Diam Index (MM) 1.5 cm/m2 Aortic Valve Name Value Normal AV Doppler AV Peak Velocity 155 cm/s AV Peak Gradient 10 mmHg AV Mean Gradient 4 mmHg AV VTI 22 cm AV Area (Cont Eq VTI) 2.6 cm2 >=3.0 AV Area (Cont Eq Igor) 2.0 cm2 AV Regurgitation 2D LVOT Area 3.2 cm2 AV Regurgitation Doppler AR Decel Time 2,309 ms AR Decel [place] 182 cm/s2 AR PHT 670 ms Ventricles Name Value Normal LV Dimensions 2D/MM IVS Diastolic Thickness (2D) 1.0 cm 0.6-1.0 LVID Diastole (2D) 4.1 cm 4.2-5.8 LVIW Diastolic Thickness (2D) 0.8 cm 0.6-1.0 LVID Systole (2D) 2.8 cm 2.5-4.0 LVOT Diameter 2.0 cm LV Mass (2D Cubed) 120.31 g 88.00-224.00 LV Mass Index (2D Cubed) 59 g/m2 49-115 Relative Wall Thickness (2D) 0.41 LV Fractional Shortening/Ejection Fraction 2D/MM LV Fractional Shortening (2D) 32 % 25-43 LV EF (2D Teicholz) 60 % 52-72 LV Diastolic Volume (4C MOD) 65 ml LV EF (4C MOD) 56 % LV Diastolic Volume (2C MOD) 50 ml LV EF (2C MOD) 61 % LV Diastolic Volume (BP MOD) 57 ml 62-150 LV Diastolic Volume Index (BP MOD) 28 ml/m2 34-74 LV Systolic Volume (BP MOD) 24 ml 21-61 LV Systolic Volume Index (BP MOD) 12 ml/m2 11-31 LV EF (BP MOD) 58 % 52-72 LV Diastolic Length (4C) 7.6 cm LV Systolic Length (4C) 6.5 cm LV Stroke Volume (4C MOD) 36 ml Atria Name Value Normal LA Dimensions LA Dimension (MM) 4.0 cm 3.0-4.1 LA Volume (4C A-L) 36 ml LA Volume (BP A-L) 39 ml RA Dimensions RA Area (4C) 13.0 cm2 <=18.0 Report Signatures
[2024-07-21 02:05] LABS: Glucose Point of Care 320 mg/dl (65-105)
[2024-07-21 04:00] VITALS: PULSE 75
[2024-07-21 04:08] VITALS: BP 142/84; PULSE 76; RESP 16; TEMP 36.1; O2SAT 94
[2024-07-21 06:37] LABS: Basophils Percent Auto 0.5 % (0.2-1.2); Eosinophils Absolute Auto 0.3 K/mm3 (0-0.3); Eosinophils Percent Auto 4.7 % (0-4.4); Hematocrit 50.3 % (42.0-52.0); Hemoglobin 17.6 g/dL (14.0-18.0); Immature Granulocyte Absolute 0.02 K/mm3 (0.00-0.031); Immature Granulocyte Percent A 0.4 % (0-0.5); Lymphocytes Absolute Auto 1.59 K/mm3 (0.9-3.2); Lymphocytes Percent Auto 28.4 % (18.3-44.2); Mean Corpuscular Hemoglobin 32.9 pg (26-34); Mean Platelet Volume 9.9 fl (7.4-10.4); Monocytes Absolute Auto 0.4 K/mm3 (0.1-0.6); Monocytes Percent Auto 6.3 % (2.6-8.5); Neutrophils Absolute Auto 3.3 K/mm3 (1.3-6.7); Neutrophils Percent Auto 59.7 % (45.5-73.1); Platelet Count Result 184 k/mm3 (150-375); Red Blood Count 5.35 M/mm3 (4.6-6.20); White Blood Count 5.6 K/mm3 (4.5-10.0)
[2024-07-21 06:50] LABS: Alanine Aminotransferase 45 U/L (6-50); Albumin Level 4.1 g/dL (3.5-5.1); Alkaline Phosphatase 115 U/L (38-126); Anion Gap 7 mmol/L (4-12); Aspartate Amino Transferase 38 U/L (17-59); Bilirubin,Total 0.6 mg/dL (0.2-1.3); Blood Urea Nitrogen 16 mg/dL (9-20); Calcium 8.7 mg/dL (8.4-10.2); Carbon Dioxide 29 mmol/L (22-30); Chloride 103 mmol/L (98-107); Cholesterol 138 mg/dL (0-200); Estimated CRCL calculation 106 ml/min; Estimated Glomerular Filt Rate > 60; Glucose 266 mg/dL (65-110); HDL Direct 24 mg/dL; Magnesium 1.8 mg/dL (1.6-2.3); Potassium 4.1 mmol/L (3.4-5.0); Sodium 139 mmol/L (137-145); Triglycerides 382 mg/dL (<150)
[2024-07-21 07:00] LABS: LDL Cholesterol Direct 54 mg/dL
[2024-07-21 08:00] VITALS: PULSE 79
[2024-07-21 08:30] VITALS: BP 144/98; PULSE 77; RESP 20; TEMP 35.7; O2SAT 96
[2024-07-21] MEDS: ACETAMINOPHEN 325 MG TABLET 650 MG PO (08:37)
[2024-07-21] MEDS: ASPIRIN 81 MG ENTERIC TABLET PO (08:37)
[2024-07-21] MEDS: ENOXAPARIN 40 MG/0.4 ML SYRINGE SUB-Q (08:37)
[2024-07-21] MEDS: LACTATED RINGERS 1,000 ML 100 ML IV CONT (08:41)
[2024-07-21 08:46] LABS: Glucose Point of Care 287 mg/dl (65-105)
[2024-07-21] MEDS: INSULIN ASPART (*BKC) 100 UNITS/ML SUB-Q ×2 (08:48→12:47)
[2024-07-21] MEDS: INSULIN GLARGINE (*BKC) 100 UNITS/ML 17 UNITS SUB-Q (08:49)
[2024-07-21 09:30] VITALS: BMI 30.6
[2024-07-21 12:30] LABS: Glucose Point of Care 318 mg/dl (65-105)
[2024-07-21 14:00] VITALS: BP 149/80; PULSE 75; RESP 18; TEMP 36.1; O2SAT 97
--- NOTE | 2024-07-21 14:20 | P.CONNEU_ITS ---
Assessment and Plan Assessment and plan (1) Diabetes mellitus: Code(s): E11.9 - Type 2 diabetes mellitus without complications Status: Acute (2) Polycythemia vera: Code(s): D45 - Polycythemia vera Status: Acute (3) TIA (transient ischemic attack): Code(s): G45.9 - Transient cerebral ischemic attack, unspecified Status: Acute Plan 1. TIA 2. Most likely diabetic neuropathy patient needs to be continued on aspirin 81mg daily, lisinopril 1 tablet every day for the hypertension rosuvastatin for the treatment of hypercholesterolemia and also he needs to be scheduled for EMG nerve conduction study of the upper extremities as an outpatient to rule out the possibility of early neuropathy. If any further questions arise please do not hesitate to contact me. Consult date: 07/21/24 HPI: Dax Márquez is a 53 year old male Has been admitted to the hospital through the emergency room for the complaints of right-sided facial droop and numbness on the right side of the face as well as per the information available he woke up around 0415 in the morning when he was experiencing tingling and numbness on his right side of the face and the face was also droopy he at the same time had a diffuse headache he took aspirin and gabapentin subsequently he developed tingling sensation in hands and feet though he did not become weak he has had a similar symptomatology in the past which affected on his left side of the body he also had difficulties in focusing mild dizziness which in the right eye intermittent shooting pain in his right triceps. He has been taking aspirin 81mg daily delayed release, he is not allergic to any medication, he does have ongoing history of diabetes mellitus with mixed hyperlipidemia as well as polycythemia vera. He is never a smoker never alcohol intake. On initial evaluation in the emergency room his vital signs were normal, CT scan of the hea d revealed no evidence of intracranial bleed, chest x-ray was negative, head and neck CTA was also negative with no evidence of large vessel involvement, and subsequently now MRI of the brain has also been done which is normal. Review of Systems Review of Systems: All systems reviewed & are unremarkable except as noted in HPI and below PMFSH Past Medical History Medical History Abnormal EKG Anxiety and depression Arm paresthesia, left Back pain Colon cancer screening Diabetes mellitus Erectile dysfunction Hip pain Mixed anxiety and depressive disorder Mixed hyperlipidemia Neuropathy New onset type 2 diabetes mellitus Polycythemia vera Vertigo Surgical History Surgical History (Updated 07/21/24 @ 00:05 by Dennis Mills APRN) History of dental surgery Family History Family History Mother Epilepsy Cerebrovascular accident Cancer Acute myocardial infarction Social History Social History Social History: Smoking status: Never smoker Second hand tobacco smoke exposure: No Alcohol intake: current Drinks per week: 1 Substance use: never Substance use type: does not use Do You Feel Safe in your Home?: Yes Lack of Transportation: No Lack of Food: Never True Current Housing: I Have Housing Concerned About Future Housing: No Difficulty Paying Gas/Electric Bills: No Difficulty Paying for Meds: No Currently Unemployed: No Education: High School Diploma/GED Difficulty w/ Childcare or Family Care: No Living arrangements: with family Occupation/Education: occupation Gender identity (if verbalized by the patient): Male Sexual Orientation (if Verbalized by the Patient): Straight or Heterosexual Spiritual care concerns: No Meds Home Medications and Allergies Home Medications Medication Instructions Recorded Confirmed Type blood-glucose sensor (FreeStyle #1 ea 09/19/22 07/20/24 Rx Ellen 3 Sensor device) blood-glucose sensor (Dexcom G6 #3 ea 09/24/22 07/20/24 Rx Sensor device) Allergies Allergy/AdvReac Type Severity Reaction Status Date / Time No Known Allergies Allergy Verified 09/19/22 07:19 Vital Signs Vital Signs - 24 hr 07/20/24 19:39 07/20/24 20:14 07/20/24 22:25 Temperature 36.8 C 36.7 C Pulse Rate 90 89 99 Respiratory Rate 20 16 17 Blood Pressure 143/92 H 141/98 H 142/99 H Pulse Oximetry 97 99 99 Oxygen Delivery 07/20/24 22:00 07/21/24 00:00 07/21/24 04:00 Temperature 36.3 C L Pulse Rate 77 75 Respiratory Rate 16 Blood Pressure 143/81 H Pulse Oximetry 92 Oxygen Delivery Room Air 07/21/24 04:08 07/21/24 08:00 Temperature 36.1 C L Pulse Rate 76 79 Respiratory Rate 16 Blood Pressure 142/84 H Pulse Oximetry 94 Oxygen Delivery Exam Narrative: Exam today revealed him to be awake alert cooperative in no obvious acute distress, his speech not dysphasic not dysarthric not dysphonic, pupils round regular feels the vision full extraocular movements full with no nystagmus facial sensation intact face symmetrical tongue midline motor examination revealed him to have normal strength and tone in upper and lower extremities with symmetric reflexes downgoing plantar responses and no evidence of ataxia or dysmetria. Results Labs 07/21/24 06:08 07/21/24 06:08 Labs: Short CBC 07/20/24 07/21/24 Range/Units 14:44 06:08 WBC 6.3 5.6 (4.5-10.0) K/mm3 Hgb 18.7 H 17.6 (14.0-18.0) g/dL Hct 52.7 H 50.3 (42.0-52.0) % Plt Count 201 184 (150-375) k/mm3 BMP 07/20/24 07/21/24 14:44 06:08 Sodium 137 139 Potassium 4.5 4.1 Chloride 96 L 103 Carbon Dioxide 32 H 29 BUN 17 16 Creatinine 0.90 0.70 Glucose 364 H 266 H Calcium 9.7 8.7 Cardiac Enzymes 07/20/24 Range/Units 14:44 Troponin I < 0.012 (0.000-0.034) ng/mL Liver Function 07/20/24 07/21/24 Range/Units 14:44 06:08 Total Bilirubin 0.7 0.6 (0.2-1.3) mg/dL AST 33 38 (17-59) U/L ALT 52 H 45 (6-50) U/L Alkaline Phosphatase 133 H 115 (38-126) U/L Albumin 4.8 4.1 (3.5-5.1) g/dL
--- NOTE | 2024-07-21 14:58 | P.DS_ITS ---
DS: Admitting Diagnosis Discharge Date 07/21/2024 Admitting Diagnosis Paraesthesias/hyperglycemia/TIA/diabetic neuropathy DS: Discharge Diagnosis Discharge Diagnosis (1) Numbness and tingling of right side of face: Code(s): R20.0 - Anesthesia of skin; R20.2 - Paresthesia of skin Status: Acute (2) Diabetic neuropathy: Code(s): E11.40 - Type 2 diabetes mellitus with diabetic neuropathy, unspecified Status: Acute (3) TIA (transient ischemic attack): Code(s): G45.9 - Transient cerebral ischemic attack, unspecified Status: Acute (4) Diabetes mellitus: Code(s): E11.9 - Type 2 diabetes mellitus without complications Status: Acute (5) HTN (hypertension): Code(s): I10 - Essential (primary) hypertension Status: Acute (6) Mixed hyperlipidemia: Code(s): E78.2 - Mixed hyperlipidemia Status: Acute DS: Summary Hospital Course Reason for hospitalization: Parathesiaias/TIA/hyperglycemia/diabetic neuropathy Hospital Course: Johanny was a 53-year-old male patient with past medical history of polycythemia vera hypertension hyperlipidemia and type 2 diabetes who was previously on oral medications for his diabetes but once he got down to hemoglobin A1c of 7 he quit taking them. Patient actually quit taking all of his medications an undetermined length of time ago. Patient reports chronic numbness to the left side of his body stating it affects his entire left side of his body. Priori to arrival to the ED patient reported right-sided numbness around his face below his eye and maxilla area. He also noted numbness and tingling to his right hand and right foot. Workup in the emergency department significant for hyperglycemia of 364, mild hypertension, elevated hemoglobin and hematocrit with normal renal function. Hemoglobin A1c found to be highly elevated at 12.8%. Emergency department consulted with Neurology who recommended patient be admitted for MRI to rule out CVA. Patient's MRI showed normal MRI this is more likely diabetic neuropathy with uncontrolled diabetes. Patient had been started on long-acting Lantus as well as sliding scale slow mild improvement to blood sugars but overall patient said symptoms had resolved. Neurology did recommend a follow-up outpatient conduction study and EMG which was provided at discharge. equipment detailer was consulted and followed up with patient regarding it diabetes and continuing medication compliance. Patient says he has not followed up with his primary care physician and is quite some time. Patient's blood sugars still around 300s however started to trend down with initiating long-acting insulin. Patient was discharged home and initiated on home long-acting insulin, sliding scale educated on Accu-Cheks a.c. HS in the need to follow-up with his primary care physician for a 1 cc Q 3 months until well controlled. Patient denied any nausea, vomiting, further dizziness or episodes right-sided numbness or tingling at time of discharge. Patient was also started on ASA, statin and Lyrica for di abetic neuropathy. Reinforced the need for close diabetic control. Status at Discharge Functional status at discharge: independent ambulation Overall status at discharge: patient is back to baseline Time Spent with Patient Time attestation: Total time spent providing and/or coordinating discharge services: Time spent: Greater than 30 minutes Exam Narrative: * GENERAL: Alert and oriented x 3. No acute distress. * EYES: EOMI. No scleral icterus. PERRLA. * HEENT: Moist mucous membranes. * LUNGS: Clear to auscultation bilaterally. No accessory muscle use. * CARDIOVASCULAR: Regular rate and rhythm. No murmur. No JVD. S1-S2 * ABDOMEN: Soft, non tenderness and non-distended. No palpable masses. * EXTREMITIES: No edema. Non-tender * SKIN: No rashes or lesions. Skin warm, dry. * NEUROLOGIC: No focal neurological deficits. CN II-XII grossly intact * PSYCHIATRIC: Appropriate mood and affect. Good judgement and insight. No visual or auditory hallucinations. No suicidal or homicidal ideation. DS: Data Data Completed and Pending Labs on day of discharge: Labs from last 24 hours 07/21/24 07/21/24 07/21/24 12:05 08:07 06:08 WBC 5.6 RBC 5.35 Hgb 17.6 Hct 50.3 MCV 94.0 MCH 32.9 MCHC 35.0 RDW 14.0 Plt Count 184 MPV 9.9 Immature Gran % (Auto) 0.4 Neut % (Auto) 59.7 Lymph % (Auto) 28.4 Ripley % (Auto) 6.3 Eos % (Auto) 4.7 H Baso % (Auto) 0.5 Lymph # (Auto) 1.59 Ripley # (Auto) 0.4 Eos # (Auto) 0.3 Baso # (Auto) 0.0 Abs Immat Gran (auto) 0.02 Absolute Neuts (auto) 3.3 Absolute Nucleated RBC 0.000 Nucleated RBC % 0.0 PT INR APTT Sodium 139 Potassium 4.1 Chloride 103 Carbon Dioxide 29 Anion Gap 7 BUN 16 Creatinine 0.70 Estim Creat Clear Calc 106 Estimated GFR > 60 Glucose 266 H POC Capillary Glucose 318 H 287 H Hemoglobin A1c Calcium 8.7 Magnesium 1.8 Total Bilirubin 0.6 AST 38 ALT 45 Alkaline Phosphatase 115 Troponin I Total Protein 7.0 Albumin 4.1 Triglycerides 382 H Cholesterol 138 LDL Cholesterol Direct 54 HDL Direct 24 07/21/24 07/20/24 02:00 14:44 WBC 6.3 RBC 5.63 Hgb 18.7 H Hct 52.7 H MCV 93.6 MCH 33.2 MCHC 35.5 RDW 14.3 Plt Count 201 MPV 9.9 Immature Gran % (Auto) 0.2 Neut % (Auto) 61.0 Lymph % (Auto) 28.8 Ripley % (Auto) 6.2 Eos % (Auto) 3.3 Baso % (Auto) 0.5 Lymph # (Auto) 1.82 Ripley # (Auto) 0.4 Eos # (Auto) 0.2 Baso # (Auto) 0.0 Abs Immat Gran (auto) 0.01 Absolute Neuts (auto) 3.9 Absolute Nucleated RBC 0.000 Nucleated RBC % 0.0 PT 13.7 INR 1.0 APTT 26.3 Sodium 137 Potassium 4.5 Chloride 96 L Carbon Dioxide 32 H Anion Gap 9 BUN 17 Creatinine 0.90 Estim Creat Clear Calc 84 Estimated GFR > 60 Glucose 364 H POC Capillary Glucose 320 H Hemoglobin A1c 12.8 H Calcium 9.7 Magnesium Total Bilirubin 0.7 AST 33 ALT 52 H Alkaline Phosphatase 133 H Troponin I < 0.012 Total Protein 8.0 Albumin 4.8 Triglycerides Cholesterol LDL Cholesterol Direct HDL Direct Imaging Radiologist's impression: MPRESSION: 1. Normal CTA head and neck. Percent stenosis per NASCET criteria is 0%. MRI FINDINGS: There is no intracranial hemorrhage, acute infarction, or abnormal intracranial mass lesion. There are scattered areas of nonspecific increased T2- weighted signal intensity in the cerebral white matter, which is within normal limits for the patient's age. The ventricles are normal in size. There is mild mucosal thickening in left maxillary sinus. The orbits are normal. There is a trace left mastoid effusion. IMPRESSION: 1. Normal aging brain. Discharge Plan Discharge Attending physician on discharge: Johnathan Disla Consulting providers: Kei Amaro Discharging Clinician: Maria Guadalupe Mchugh Anticipated Discharge Date/Time: 07/21/24 14:43 Patient Disposition: Home, Self-Care Activity: unlimited and as tolerated Diet: diabetic Discharge Instructions: Diabetes discharge * Hemoglobin A1c goal less than 7 will need A1C every 3 months until improved current A1C 12.7 * lipid panel: I started you crestor daily * Renal function liver panel every 3 months. . * Optimize Mateo inhibitors and statins. * Watch for hypoglycemia/hypoglycemic * BMI goals less than 25. * Yearly eye exam and foot exam. * Exercise, diet low-salt low carb. Weight loss. * Primary care physician lab animal technician as an outpatient. * Monitor blood sugars before meals and at night until regulated I have also included information and education on diabetic diet. You are at high risk for stroke so I have included information on TIA You were also started on Lisinopril 20 mg daily for hypertension Patient Instructions: Transient Ischemic Attack (DC), Pain Management (DC), Foot Care for People with Diabetes (DC), Diabetic Neuropathy (DC), Managing Diabetes During Sick Days (DC), Paresthesia (ED), Hypertension (DC), Hyp erlipidemia (DC), Diabetic Kidney Disease (DC), Diabetes and Your Skin (DC), Type 2 Diabetes in the Older Adult (DC), Diabetes and Nutrition (DC), Diabetes and Exercise (DC) Patient Language: Kinyarwanda Stand Alone Forms: General Discharge Information Follow-up/Referrals: Kei Amaro MD [Physician] - (EMG/Nerve conduction) Bonnie Núñez MD [Primary Care Provider] - 2 Weeks Discharge Medications: New aspirin 81 mg Tablet,Delayed Release (Dr/Ec) 81 mg PO QAM Qty: 30 0RF rosuvastatin [Crestor] 10 mg tablet 10 mg PO DAILY Qty: 30 0RF insulin glargine [Lantus Solostar U-100 Insulin] 100 unit/mL (3 mL) insulin pen 25 unit subcut QAM Qty: 15 0RF insulin lispro 100 unit/mL insulin pen 1 sliding scale dose subcut USEASDIRECTD Qty: 15 0RF Rx Instructions: glucose 201-250 mg/dl 4 units sub-Q glucose 251-300 mg/dl 5 units sub-Q glucose 301-350 mg/dl 6 units sub-Q glucose 351-400 mg/dl 8 units sub-Q lisinopril 20 mg tablet 20 mg PO DAILY Qty: 30 0RF (DME) pen needle, diabetic [BD Ultra-Fine Orig Pen Needle] 29 gauge x 1/2 needle See Rx Instructions .Route Qty: 100 0RF Rx Instructions: As directed pregabalin [Lyrica] 75 mg capsule 75 mg PO HS Qty: 30 0RF Continued (DME) FreeStyle Ellen 3 Sensor Device See Rx Instructions .Route Qty: 1 0RF Rx Instructions: As directed (DME) Dexcom G6 Sensor Device See Rx Instructions .Route Qty: 3 0RF Rx Instructions: As directed Other Ambulatory Orders: Diabetes Education Referral (Routine) Timeframe: 1 Day Location: Determined by Patient Ordered By: Maria Guadalupe Mchugh Nerve Conduction Study EMG (Routine) Timeframe: 1 Month Location: Determined by Patient Ordered By: Maria Guadalupe Mchugh Date of admission: 07/20/24 21:12 Primary Care Provider: Bonnie Núñez Admitting Provider: Johnathan Disla Attending physician on admission: Maria Guadalupe Mchugh Condition: Stable Quality -Patient's previous records reviewed on admission -ER notes reviewed in detail on admission -discussed all findings and current treatment plan with patient/Family/POA -Consultations reviewed for recommendations -Patient's disposition for safe discharge discussed with machine adjuster leader case trim Dictation performed by net[employer]entry direct speech recognition software, therefore tire worker variants and typographical errors may occur. Hospitalist MIPS Heart Failure (Exclusion) Patient has history of Heart Transplant or Left Ventricular Assistive Device?: No IF YES, STOP HERE Heart Failure (Qualifier) Patient has current or prior documentation of LVEF less than or equal to 40%, or mod/servere depressed LVSF?: No IF NO, STOP HERE
== END 2024-07-21 16:45 | disposition home or self-care (01) ==
LOC: ANHED 20:23 → ANH3MEDSUR 21:49
PROVIDERS: Nurse Practitioner; Physician Assistant; Admitting Provider Internal Medicine; Emergency Provider Physician Assistant; PCP Family Medicine; Visit Provider Nurse Practitioner Family
DX: G45.9 Transient cerebral ischemic attack, unspecified (principal); E11.40 Type 2 diabetes mellitus with diabetic neuropathy, unspecified; E11.65 Type 2 diabetes mellitus with hyperglycemia; F41.8 Other specified anxiety disorders; E78.2 Mixed hyperlipidemia; D45 Polycythemia vera; I10 Essential (primary) hypertension
CPT/HCPCS: 36415; 70450; 70496; 70498; 70553; 71045; 80053; 80061; 82948; 83036; 83735; 84484; 85025; 85610; 85730; 93005; 93306; 96361; 96372; 96374; 96375; 99285; A9270; A9577; G0378; J1200; J1650; J1815; J2765; J7030; J7120; Q9967

== ENCOUNTER 2025-03-04 15:13 | Outpatient (CLI) | payer OTHER, SELFPAY ==
--- NOTE | ~2025-03-04 | MR_ITS ---
MRI of the right shoulder Technique: Axial proton-density fat-sat images, coronal proton density fat-sat and T2 fat-sat images, and sagittal T1-weighted and T2 fat-sat images were acquired. Clinical History: Pain Findings: There is minimal AC joint degenerative change. Coracoclavicular, coracoacromial, and coraco humeral ligaments are intact. Supraspinatus and infraspinatus tendons are intact, without partial or full-thickness tear. There is mild tendinosis. There is moderate tendinosis of the subscapularis tendon. Tendon of long head of the biceps is intact. There is probable subtle SLAP tear of the labrum. Inferior glenohumeral ligament is mildly thickened and hyperintense. There is minimal glenohumeral bradley int effusion. No significant degenerative change. No fluid distention of the subacromial/subdeltoid b ursa. No muscle atrophy or edema. Impression: Suspected very subtle SLAP tear of the labrum. Thickening and increased signal in the inferior glenohumeral ligament suggests adhesive capsulitis. C orrelate clinically. Reviewed, dictated and finalized at [facility]. Impression: Suspected very subtle SLAP tear of the labrum. Thickening and increased signal in the inferior glenohumeral ligament suggests adhesive capsulitis. Correlate clinically.
--- OUTSIDE RECORDS SUMMARY | 2025-03-04 15:18 | XMS_ITS | Referral Summary ---
Author Organization [facility] [address] Address [address] [place] [id number] Care Team Providers Care Environmental Research Project Manager Name Role Phone No, Physician Primary Care Provider [phone] Allergies No known active allergies Medications gabapentin (NEURONTIN) 100 mg capsule Take by mouth 3 (three) times a day Active Active Problems No known active problems Immunizations Immunization Administration Dates Next Due Influenza, Quadrivalent, Rec ombinant, Egg Free, Preservative Free, Intramuscular 06/13/2016 Influenza, Quadrivalent, Spl it, Preservative Free, Intramuscular 07/14/2021 Social History Tobacco Use Types Packs/Day Years Used Date Smoking Tobacco: Never Tobacco Cessation:Counseling Given: Not Answered Sex and Gender Information Value Date Recorded Sex Assigned at Not on file Legal Sex Male 6:02 AM FOOT CASTER Gender Identity Not on file Sexual Orientation Not on file Last Filed Vital Signs Vital Sign Reading Time Taken Comments Blood Pressure 141/101 07/20/2024 11:31 AM FOOT CASTER Pulse 93 07/20/2024 11:31 AM FOOT CASTER Temperature 36.2 C (97.2 F) 07/20/2024 11:31 AM FOOT CASTER Respiratory Rate 18 07/20/2024 11:31 AM FOOT CASTER Oxygen Saturation 99% 07/20/2024 11:31 AM FOOT CASTER Inhaled Oxygen Concentration - - Weight 85.7 kg (189 lb) 07/20/2024 11:31 AM FOOT CASTER Height 167.6 cm (5' 6) 07/20/2024 11:31 AM FOOT CASTER Body Mass Index 30.51 07/20/2024 11:31 AM FOOT CASTER Plan of Treatment Not on file Insurance [facility] PLUS [facility] Care Teams Environmental Research Project Manager Relationship Specialty Start Date End Date No, Physician PCP - General 09/18/21
--- OUTSIDE RECORDS SUMMARY | 2025-03-04 15:18 | XMS_ITS | Clinical Summary ---
Author Organization [facility] [place] [address] Address [address] [place] [id number] Care Team Providers Care Control And Recovery Combat Rescue Name Role Phone No, Physician Primary Care Provider [phone] Allergies No known active allergies Medications gabapentin (NEURONTIN) 100 mg capsule Take by mouth 3 (three) times a day Active Active Problems No known active problems Immunizations Immunization Administration Dates Next Due Influenza, Quadrivalent, Rec ombinant, Egg Free, Preservative Free, Intramuscular 06/13/2016 Influenza, Quadrivalent, Spl it, Preservative Free, Intramuscular 07/14/2021 Family History Medical History Relation Name Comments Diabetes Father Heart disease Father Hypertension Father Diabetes Mother Heart disease Mother Hypertension Mother Relation Name Status Comments Father Alive Mother Alive Social History Tobacco Use Types Packs/Day Years Used Date Smoking Tobacco: Never Tobacco Cessation:Counseling Given: Not Answered Sex and Gender Information Value Date Recorded Sex Assigned at Not on file Legal Sex Male 6:02 AM WATERSHED ENGINEER Gender Identity Not on file Sexual Orientation Not on file Obstetrics History Last Filed Vital Signs Vital Sign Reading Time Taken Comments Blood Pressure 141/101 07/20/2024 11:31 AM WATERSHED ENGINEER Pulse 93 07/20/2024 11:31 AM WATERSHED ENGINEER Temperature 36.2 C (97.2 F) 07/20/2024 11:31 AM WATERSHED ENGINEER Respiratory Rate 18 07/20/2024 11:31 AM WATERSHED ENGINEER Oxygen Saturation 99% 07/20/2024 11:31 AM WATERSHED ENGINEER Inhaled Oxygen Concentration - - Weight 85.7 kg (189 lb) 07/20/2024 11:31 AM WATERSHED ENGINEER Height 167.6 cm (5' 6) 07/20/2024 11:31 AM WATERSHED ENGINEER Body Mass Index 30.51 07/20/2024 11:31 AM WATERSHED ENGINEER Plan of Treatment Health Maintenance Due Date Last Done Comments Colon Cancer Screening-Colonoscopy 1968 Depression Screening 1968 Hepatitis C Screening 1968 Prostate Cancer Screening-PSA 1968 DTaP/Tdap/Td Vaccine (1 - Tdap) 11/24/1979 Hepatitis B Screening 1986 Regular Well Visit/Exam 18-64 1986 Zoster Vaccine (1 of 2) 2018 Covid-19 Vaccine (4 - 2023-2 5 season) 2024 07/14/2021, 11/15/2020, 10/25/2020 Influenza Vaccine (Season Ended) 2025 07/14/2021, 06/13/2016 Pneumococcal vaccine <65 Aged Out No longer eligible based on patient's age to complete this topic Insurance [facility] Care Teams Control And Recovery Combat Rescue Relationship Specialty Start Date End Date No, Physician PCP - General 09/18/21
--- OUTSIDE RECORDS SUMMARY | 2025-03-04 15:18 | XMS_ITS | Clinical Summary ---
Author Organization [facility] Address [address] [place] [address] Care Team Providers Care Soap Drier Tender Name Role Phone Fortino White MD Primary Care Provider [phone] Source Comments [facility] [place],non-owned Affiliates and Associated Physician Practices is amultiple site organization consisting of ambulatory clinics and hospital sitesin [place], [place], [place] and [place]. This disclosure is being madepursuant to the Care Everywhere program and may not contain all information available regarding this patient. Last updated 18.[facility] [place] Allergies No known active allergies Medications * Be aware that medications may not be up to date on this document. Alwaysverify current medications with the patient. predniSONE 10 mg (DELTASONE) 10 MG (21) dose packIndications :Contact dermatitis Take by mouth as directed Reasons: Contact dermatitis 21 Tab 6 Active Immunizations Immunization Administration Dates Next Due FLU VACCINE QUAD IIV4 PF ID 06/13/2016 Social History Tobacco Use Types Packs/Day Years Used Date Smoking Tobacco: Never Assessed Sex and Gender Information Value Date Recorded Sex Assigned at Not on file Legal Sex Male 1:09 PM CDT Gender Identity Not on file Sexual Orientation Not on file Last Filed Vital Signs Vital Sign Reading Time Taken Comments Blood Pressure 130/78 06/13/2016 2:21 PM CDT Pulse 88 06/13/2016 2:21 PM CDT Temperature 36.7 C (98.1 F) 06/13/2016 2:21 PM CDT Respiratory Rate 18 06/13/2016 2:21 PM CDT Oxygen Saturation 95% 06/13/2016 2:21 PM CDT Inhaled Oxygen Concentration - - Weight 90.7 kg (200 lb) 06/13/2016 2:21 PM CDT Height 167.6 cm (5' 6) 06/13/2016 2:21 PM CDT Body Mass Index 32.28 06/13/2016 2:21 PM CDT Plan of Treatment Health Maintenance Due Date Last Done Comments COLOGUARD (AGES 45-75) - COL ON CA SCREENING 1968 COLON MONITORING 1968 COLONOSCOPY - COLON CA SCREENING 1968 CT COLONOGRAPHY - COLON CA SCREENING 1968 Colorectal Cancer Screening 1968 FIT - COLON CA SCREENING 1968 FLEX SIG - COLON CA SCREENING 1968 LIPID TESTING 1968 HIV SCREENING 11/24/1983 HEPATITIS C SCREENING 11/19/1986 DTAP/TDAP/TD VACCINES (1 - Tdap) 11/24/1987 HEPATITIS B VACCINE (1 of 3 - 19+ 3-dose series) 11/24/1987 PNEUMOCOCCAL VACCINE 50+ (1 of 1 - PCV) 2018 ZOSTER VACCINE (1 of 2) 2018 COVID-19 VACCINE (1 - 2023-2 5 season) 2024 DEPRESSION SCREENING 08/26/2024 INFLUENZA VACCINE (Season Ended) 2025 06/13/20 16 HIB VACCINE Aged Out No longer eligi ble based on patient's age to complete this topic HPV VACCINE Aged Out No longer eligi ble based on patient's age to complete this topic MENINGOCOCCAL (Group B) VACC INE SHARED DECISION-MAKING Aged Out No longer eligibl e based on patient's age to complete this topic MENINGOCOCCAL GROUPS A/C/Y/W VACCINE Aged Out No longer eligible b ased on patient's age to complete this topic Insurance Care Teams Soap Drier Tender Relationship Specialty Start Date End Date Fortino White MD [address] [place] [address] PCP - General Family Medicine 06/13/16
== END 2025-03-04 15:14 | disposition home or self-care (01) ==
PROVIDERS: PCP Student in an Organized Health Care Education/Training Program; Visit Provider Student in an Organized Health Care Education/Training Program
DX: S43.431A Superior glenoid labrum lesion of right shoulder, initial encounter (principal); X58.XXXA Exposure to other specified factors, initial encounter; M75.01 Adhesive capsulitis of right shoulder
CPT/HCPCS: 73221

== ENCOUNTER 2025-04-14 08:05 | Outpatient (CLI) | payer OTHER, SELFPAY ==
--- NOTE | ~2025-04-14 | XR_ITS ---
EXAM/ PROCEDURE: XR shoulder RT min 2V - 04/14/2025 8:19 CDT HISTORY: 54 years old Male with CHRONIC RT SHOULDER PAIN; HX ROTATOR CUFF TEAR x1 MONTH AGO COMPARISON: None available TECHNIQUE: Four view(s) FINDINGS/ IMPRESSION: There are no fractures or dislocations.Joint spaces are within normal limits. Reviewed, dictated and finalized at location A.
== END 2025-04-14 08:06 | disposition home or self-care (01) ==
PROVIDERS: PCP Student in an Organized Health Care Education/Training Program; Visit Provider Orthopaedic Surgery
DX: M25.511 Pain in right shoulder (principal)
CPT/HCPCS: 73030

== ENCOUNTER 2025-06-21 08:52 | Outpatient (CLI) | payer OTHER, SELFPAY ==
--- OUTSIDE RECORDS SUMMARY | 2025-06-21 09:30 | XMS_ITS | Clinical Summary ---
Author Organization [facility] Address [address] [place] [address] Care Team Providers Care Bench Lathe Operator Name Role Phone Fortino White MD Primary Care Provider [phone] Source Comments [facility],non-owned Affiliates and Associated Physician Practices is amultiple site organization consisting of ambulatory clinics and hospital sitesin [place], [place], [place] and [place]. This disclosure is being madepursuant to the Care Everywhere program and may not contain all information available regarding this patient. Last updated 18.[facility] Allergies No known active allergies Medications * Be aware that medications may not be up to date on this document. Always verify current medications with the patient. predniSONE 10 [...] 2018 ZOSTER VACCINE (1 of 2) 2018 DEPRESSION SCREENING 08/26/2024 COVID-19 VACCINE (1 - 2023-2 5 season) 2025 INFLUENZA VACCINE (#1) 2025 06/13/2016 HIB VACCINE Aged Out No longer eligi [...] to complete this topic Insurance Care Teams Bench Lathe Operator Relationship Specialty Start Date End Date Fortino White MD [address] [place] [address] PCP - General Family Medicine 06/13/16
--- OUTSIDE RECORDS SUMMARY | 2025-06-21 09:30 | XMS_ITS | Clinical Summary ---
Author Organization [facility] [address] Address [address] [place] [id number] Care Team Providers Care Eyeletter Name Role Phone No, Physician Primary Care Provider [phone] Allergies No known active allergies Medications gabapentin [...] on file Legal Sex Male 6:02 AM RADIOLOGIST PHYSICIAN Gender Identity Not on file Sexual Orientation Not on file Obstetrics History Last Filed Vital Signs Vital Sign Reading Time Taken Comments Blood Pressure 141/101 07/20/2024 11:31 AM RADIOLOGIST PHYSICIAN Pulse 93 07/20/2024 11:31 AM RADIOLOGIST PHYSICIAN Temperature 36.2 C (97.2 F) 07/20/2024 11:31 AM RADIOLOGIST PHYSICIAN Respiratory Rate 18 07/20/2024 11:31 AM RADIOLOGIST PHYSICIAN Oxygen Saturation 99% 07/20/2024 11:31 AM RADIOLOGIST PHYSICIAN Inhaled Oxygen Concentration - - Weight 85.7 kg (189 lb) 07/20/2024 11:31 AM RADIOLOGIST PHYSICIAN Height 167.6 cm (5' 6) 07/20/2024 11:31 AM RADIOLOGIST PHYSICIAN Body Mass Index 30.51 07/20/2024 11:31 AM RADIOLOGIST PHYSICIAN Plan of Treatment Health Maintenance Due Date Last Done Comments Colon Cancer Screening-Colonoscopy 1968 Depression Screening 1968 Hepatitis C Screening 1968 Prostate Cancer Screening-PSA 1968 DTaP/Tdap/Td Vaccine (1 - Tdap) 11/24/1979 Hepatitis B Screening 1986 Regular Well Visit/Exam 18-64 1986 Zoster Vaccine (1 of 2) 2018 Covid-19 Vaccine (4 - 2024-2 6 season) 2025 07/14/2021, 11/15/2020, 10/25/2020 Influenza Vaccine (#1) 2025 , 06/13/2016 Pneumococcal vaccine <65 Aged Out No longer eligible based on patient's age to complete this topic Insurance [facility] PLUS [facility] PL[facility] Care Teams Eyeletter Relationship Specialty Start Date End Date No, Physician PCP - General 09/18/21
[2025-06-21 10:05] LABS: Anion Gap 8 mmol/L (4-12); Blood Urea Nitrogen 19 mg/dL (9-20); Calcium 8.9 mg/dL (8.4-10.2); Carbon Dioxide 27 mmol/L (22-30); Chloride 105 mmol/L (98-107); Estimated Glomerular Filt Rate > 60; Glucose 278 mg/dL (65-110); Potassium 4.1 mmol/L (3.4-5.0); Sodium 140 mmol/L (137-145)
== END 2025-06-21 08:53 | disposition home or self-care (01) ==
PROVIDERS: Anesthesiology; PCP Student in an Organized Health Care Education/Training Program; Visit Provider Orthopaedic Surgery
DX: E11.9 Type 2 diabetes mellitus without complications (principal)
CPT/HCPCS: 36415; 80048

== ENCOUNTER 2025-06-28 00:31 | Day surgery (SDC) | payer OTHER, SELFPAY ==
[2025-06-17 11:53] VITALS: BMI 30.4
--- NOTE | 2025-06-17 15:24 | SUR.PREOP ---
Addendum entered by Britney Powell RN 06/18/25 13:55: 06/18/25-Per Jo Ann with Dr. Sandoval's office at [phone] the pt is to hold all AM insulin on the DOS 06/28/25. Stated the PCP notified the pt of the updated instructions 06/18/25-djj Original Note: [facility] has started construction of its new state of the art ER which will open Spring 2026. With this, we anticipate parking may be a challenge for some our surgical patients and families. Parking spaces are limited but are available for all Surgical, obstetrics, and ER patients sharing this lot. If you arrive and find you are having a hard time finding a parking space, please note that we understand the challenges, please drive around the hospital and park near Hospital Entrance 1. When you enter this entrance, you can ask a volunteer to direct or take you back to the surgical waiting area to check in. We appreciate everyone?s understanding of these expected challenges while we build for your future. Report to the Outpatient Waiting Room, entrance under the green pavilion located off [facility], at time __10AM__ on date __06/28/25__. Planned Procedure Time: __1200PM__.? Time changes happen often and if your time is changed the preop area will call you the afternoon before. - You and your visitor will be asked to self-screen and do not enter if you have any COVID symptoms. Please call surgeon if you need to reschedule. - A mask is optional within the hospital at this time. Patients may have clear liquids (water, carbonated beverages, clear teas, apple juice) until 3 hours prior to surgery with a maximum of 20 ounces. - No food from midnight until time of surgery and no smoking, or chewing tobacco (or any form of nicotine). No chewing gum, candy or mints. Take only the following medications with a SIP of water on the morning of surgery: __escitalopram, pregabalin, propranolol, take 1/2 of the morning lispro and lantus___ DO NOT STOP ANY OF YOUR OTHER PRESCRIPTION MEDICATIONS PRIOR TO SURGERY EXCEPT THE FOLLOWING Hold all vitamins and supplements for 3 days per anesthesiologist. Medications to hold per physician ____Aspirin ____ Date to take last dose__ 06/21/25__ Please no make-up, nail icelandic, hairspray, perfume, deodorant, or body powder the day of surgery.? No jewelry (including any body piercings) or valuables the day of surgery, leave them at home.? Please take a shower or bath the night before, or the morning of, surgery with an antibacterial soap.? Wear comfortable, loose fitting clothing.? - Jewelry must be removed prior to entering the operating room.? Rings and piercings that are not removed may be cut off. - The hospital will not accept responsibility for valuables.? - Please leave all valuables, including medications, at home the day of surgery. If you are going home after surgery, a licensed drivers' cash clerk must drive you home.? - NO public transportation without another adult if you receive anesthesia. - We recommend that an adult stay with you for 24 hours following discharge. - We also recommend that you do not drive, make important decision, drink alcoholic beverages, or take any drugs that were not prescribed by your health care provider for at least 24 hours after your discharge time. Follow any additional instructions given to you from your surgeon. Telephone instructions given to __Dax and asked if any additional questions and then verbalized understanding. Patient advised to call surgeon office or pre surgery nurse liaison [phone] if any additional questions.
[2025-06-28] VITALS (13 sets, daily range): BP systolic 138–184; BP diastolic 59–97; PULSE 64–81; RESP 12–20; TEMP 36.3–36.4; O2SAT 93–100; BMI 30.2
--- OUTSIDE RECORDS SUMMARY | 2025-06-28 00:34 | XMS_ITS | Clinical Summary ---
Author Organization [facility] Address [address] [place] [address] Care Team Providers Care Smalltalk Developer Name Role Phone Fortino White MD Primary Care Provider [phone] Source Comments [facility],non-owned Affiliates and Associated Physician Practices is amultiple site organization consisting of ambulatory clinics and hospital sitesin [place], [place], [place] and [place]. This disclosure is being madepursuant to the Care Everywhere program and may not contain all information available regarding this patient. Last updated 18.[facility] Allergies No known active allergies Medications * [...] to complete this topic Insurance Care Teams Smalltalk Developer Relationship Specialty Start Date End Date Fortino White MD [address] [place] [address] PCP - General Family Medicine 06/13/16
[2025-06-28] MEDS: LACTATED RINGERS 1,000 ML 30 ML IV CONT ×3 (10:10→15:30)
[2025-06-28] MEDS: ACETAMINOPHEN 500 MG TABLET 1000 MG PO (10:27)
[2025-06-28] MEDS: KETOROLAC 15 MG/ML VIAL (*BKC) IV PUSH (10:27)
--- NOTE | 2025-06-28 11:56 | WPDANESEPPF ---
Anes - Initial Pre Proc Eval Procedure: Operation Date: 06/28/25 12:00 Proposed Procedures p Right Shoulder Arthroscopic Biceps Tenodesis Subacromial Decompression - Catarino Barnett MD Date/Time: 06/28/25 11:56 Surgeon: Catarino Barnett MD Pre Op Diagnosis: SLAP Tear rt shoulder Patient Data Age: 54 Gender: M Height: 1.65 m Weight: 82.5 kg Last Vital Signs Temp 36.4 C 06/28/25 09:40 Pulse 69 06/28/25 09:40 Resp 14 06/28/25 09:40 BP 150/91 H 06/28/25 09:40 Pulse Ox 100 06/28/25 09:40 Allergies Allergy/AdvReac Type Severity Reaction Status Date / Time lisinopril AdvReac Mild Cough Verified 06/28/25 11:08 Home Medications ?Medication ?Instructions ?Recorded ?Confirmed ?Type aspirin 81 mg tablet,delayed 81 mg PO QAM #30 tabs 07/30/24 06/28/25 Rx release lancets 33 gauge (OneTouch Delica #400 ea 08/24/24 06/14/25 Rx Plus Lancet) tadalafil 10 mg tablet (Cialis) 10 mg PO DAILY PRN sexual activity 10/28/24 06/17/25 Rx #30 tabs insulin glargine 100 unit/mL (3 See Rx Instructions subcut BID #45 11/17/24 06/17/25 Rx mL) subcutaneous pen (Lantus mL Solostar U-100 Insulin) blood sugar diagnostic (OneTouch #400 strips 12/28/24 06/14/25 Rx Verio test strips) insulin lispro 100 unit/mL 1 sliding scale dose subcut 01/27/25 06/17/25 Rx subcutaneous pen USEASDIRECTD #15 mL pen needle, diabetic 29 gauge x #400 ea 01/27/25 06/14/25 Rx 1/2 rosuvastatin 10 mg tablet See Rx Instructions .Route 01/27/25 06/17/25 Rx .COMPLEX #90 tabs sertraline 100 mg tablet 100 mg PO DAILY #90 tabs 01/27/25 06/17/25 Rx pregabalin 75 mg capsule 75 mg PO DAILY #90 caps 05/10/25 06/17/25 Rx propranolol 40 mg tablet See Rx Instructions .Route 05/18/25 06/17/25 Rx .COMPLEX #360 tabs escitalopram oxalate 10 mg tablet 10 mg PO DAILY #90 tabs 05/25/25 06/17/25 Rx losartan 50 mg tablet 50 mg PO DAILY #90 tabs 06/24/25 Rx aspirin 81 mg tablet,delayed 81 mg PO BID 14 days #28 tabs 06/28/25 Rx release oxycodone-acetaminophen 5 mg-325 1 - 2 tablet PO Q4-6H PRN pain 7 06/28/25 Rx mg tablet days #30 tabs Laboratory Tests 06/28/25 10:03 POC Capillary Glucose 134 H mg/dl (65-105) Patient hx anesthesia problems: none Family hx anesthesia problems: none Results Review: All pre-operative results and documents have been reviewed as part of the pre-operative evaluation. [facility] Past Medical History Medical History Non compliance w medication regimen Colon cancer screening Hip pain Back pain Vertigo Neuropathy Arm paresthesia, left Abnormal EKG Erectile dysfunction Mixed anxiety and depressive disorder New onset type 2 diabetes mellitus Anxiety and depression Diabetes mellitus Polycythemia vera Mixed hyperlipidemia Surgical History Surgical History History of dental surgery Family History Family History Mother Epilepsy Cerebrovascular accident Cancer Acute myocardial infarction Social History Social History Social History: Smoking status: Never smoker Second hand tobacco smoke exposure: No Alcohol intake: current Drinks per week: 1 Substance use: never Substance use type: does not use Do You Feel Safe in your Home?: Yes Lack of Transportation: No Lack of Food: Never True Current Housing: I Have Housing Concerned About Future Housing: No Difficulty Paying Gas/Electric Bills: No Difficulty Paying for Meds: No Currently Unemployed: No Education: High School Diploma/GED Difficulty w/ Childcare or Family Care: No Living arrangements: with family Occupation/Education: occupation Gender identity (if verbalized by the patient): Male Sexual Orientation (if Verbalized by the Patient): Straight or Heterosexual Spiritual care concerns: No Anes - Eval Final PreProcedure Day of Procedure 06/28/25 11:56 Patient weight: obese Heart: regular rate and rhythm Lungs: decreased breath sounds Airway: Mallampati scale class II Neurological: alert and oriented Last oral intake: >/= 8 hours ASA classification: III Emergent: no Anesthetic plan: proceed Anesthesia type and monitoring: general ETT and standard monitoring Results Review: All pre-operative results and documents have been reviewed as part of the pre-operative evaluation. Informed Consent: The patient's anesthetic plan and its attendant risks and benefits were discussed with the patient/family/POA. Questions were solicited and answers provided to the satisfaction of the patient/family/POA.
--- NOTE | 2025-06-28 12:00 | WPDHPUPDATE1 ---
History and Physical Update Update Date/Time: 06/28/25 12:00 History and Physical has been reviewed, including an updated exam of the patient. Stiffness persists, consistent with adhesive capsulitis. Will add capsule release to the procedure. Risks, benefits, and alternatives have been discussed and questions answered. Patient agrees to proceed with procedure.
[2025-06-28] MEDS: ceFAZolin 2 GM in SODIUM CHLORIDE 0.9% IV 50 ML 100 ML IVPB (12:15)
[2025-06-28] MEDS: BUPIVACAINE/EPINEPHRINE 0.5% 50 ML VIAL 20 ML INFILTRATE (12:25)
[2025-06-28] MEDS: fentaNYL CITRATE INJ (*CRX) 100 MCG/2 ML VIAL 25 MCG IV PUSH ×4 (14:26→14:57)
[2025-06-28] MEDS: ONDANSETRON INJ 4 MG/2 ML VIAL IV PUSH (15:28)
--- NOTE | 2025-06-28 16:05 | W.PM.PROC2 ---
Procedure Note - Detailed Date of Procedure 06/28/25 Pre-op Diagnosis SLAP Tear rt shoulder Post-op Diagnosis Other (1. SLAP tear right shoulder 2. Adhesive capsulitis right shoulder 3. Biceps tendinosis) Procedure Performed Right shoulder arthroscopic 1. Capsule release 2. Biceps tenodesis Surgeon Catarino Barnett MD Industrial Coffee Gr[employer] Jennifer Harman PA-C Anesthesia General Findings Severe tendinosis of the biceps. Very tight adhesive capsulitis. External rotation limited to 20? initially superior elevation 90? internal rotation to the abdomen. Capsule release was performed anterior inferior and posterior. The axillary nerve was carefully protected. Biceps showed significant hyperemia and the severe SLAP tear identified. A biceps tenodesis was performed at the articular margin using the loop and tack system from Arth[employer]. The subacromial space did not show any clear evidence of impingement and the rotator appeared very healthy. Description of Procedure Preoperative antibiotics were given. An interscalene block was performed. The patient was brought to the operating room, and carefully placed in the beach chair position. The head neck were carefully positioned. Examination under anesthesia revealed extreme tightness of the shoulder with marked limitation in movement. The shoulder required manipulation prior to introduction of the cannula. Inspection revealed significant capsulitis. The articular cartilage was intact. The capsule was very thickened and tight. The superior labrum showed extensive SLAP tear. Biceps showed diffuse tendinosis. The rotator cuff appeared normal. An accessory anterosuperior cannula was created. The tissue resection device was used to remove the rotator interval tissue. The loop and tack system from [employer] was used to secure the biceps. The biceps was released from the SLAP tear. A SwiveLock anchor was used to secure the biceps at the articular margin. The anterior and inferior capsule was released with the hook probe. The camera was switched to the anterior portal. The posterior capsule was then resected in a similar fashion. Particularly care was taken in the axillary pouch. The tips of the resector were always in view. At this point the glenohumeral articulation was much less stiff. The arthroscopic instruments were removed. Inspection in the subacromial bursa did not reveal any abnormal pathology or signs of impingement. Manipulation was then performed in the typical manner. Motion was greatly improved. The wounds were closed with interrupted 4-0 Monocryl suture followed by Steri-Strips. The patient was extubated and brought to recovery room in stable condition. There were no complications. Physician registered dental assistant, Jennifer Velazquez PA-C, required for surgery; including patient positioning, draping, arthroscopic camera operation, maintaining instrument position, suture retrieval, wound closure, and dressing and sling placement. Implants Arthrex Loop N Tack with SwiveLock. Estimated Blood Loss 20 Drains No Packing No Pathology None sent Complications No immediate complications Condition Stable Disposition PACU [facility] Billing Surgery - Charge Forward: Surgery Billing
[2025-06-28] MEDS: oxyCODONE HCL (*CRX) 5 MG TAB IR PO (16:30)
== END 2025-06-28 18:00 | disposition home or self-care (01) ==
PROVIDERS: PCP Student in an Organized Health Care Education/Training Program; Visit Provider Orthopaedic Surgery
PROC: (CPT 29805; principal; 2025-06-28 12:00)
DX: M75.81 Other shoulder lesions, right shoulder (principal); M75.21 Bicipital tendinitis, right shoulder; M75.01 Adhesive capsulitis of right shoulder; E11.9 Type 2 diabetes mellitus without complications; E66.9 Obesity, unspecified; Z68.30 Body mass index [BMI] 30.0-30.9, adult
CPT/HCPCS: 29828; 82948; J0690; A4565; A9270; C1713; J0166; J1100; J1200; J1885; J2250; J2371; J2405; J2704; J3010; J7120

== ENCOUNTER 2025-07-28 08:45 | Outpatient (CLI) | payer OTHER, SELFPAY ==
--- NOTE | 2025-07-28 09:00 | NEURO_ITS ---
Impression: # Insulin dependent complains of increasing hand numbness. ? # Bilateral Carpal Tunnel Syndrome. ? # Mild Ulnar Neuropathy across the elbow, bilaterally. ? # Needle/ EMG exam abnormal. ? Nerve Conduction Studies ?Stim Site NR Peak (ms) P-T Amp (?V) Site1 Site2 Delta-P (ms) Dist (cm) Igor (m/s) Left Median Anti Sensory (2-3nd Digit) Wrist ? 5.8 5.1 Wrist 2-3nd Digit 5.8 14.0 24 Wrist ? 8.3 3.7 Wrist 2-3nd Digit 5.8 14.0 24 Right Median Anti Sensory (2-3nd Digit) Wrist ? 5.6 13.2 Wrist 2-3nd Digit 5.6 14.0 25 Wrist NR Wrist 2-3nd Digit 5.6 14.0 25 Left Radial Anti Sensory (Base 1st Digit) Wrist ? 3.1 8.0 Wrist Base 1st Digit 3.1 0.0 Right Radial Anti Sensory (Base 1st Digit) Wrist ? 3.7 4.6 Wrist Base 1st Digit 3.7 0.0 Left Ulnar Anti Sensory (5th Digit) Wrist ? 3.3 8.0 Wrist 5th Digit 3.3 14.0 42 Right Ulnar Anti Sensory (5th Digit)??? NO RESPONSE Wrist NR Wrist 5th Digit 14.0 ?Stim Site NR Onset (ms) O-P Amp (mV) Site1 Site2 Delta-0 (ms) Dist (cm) Igor (m/s) Left Median Motor (Abd Poll Brev) Wrist ? 5.3 6.1 Elbow Wrist 5.6 28.0 50 Elbow ? 10.9 5.7 Right Median Motor (Abd Poll Brev) Wrist ? 5.5 4.4 Elbow Wrist 5.8 30.0 52 Elbow ? 11.3 4.1 Left Ulnar Motor (Abd Dig Minimi) Wrist ? 2.9 11.2 A Elbow Wrist 6.1 29.0 48 A Elbow ? 9.0 10.3 B Elbow Wrist 4.2 22.0 52 B Elbow ? 7.1 8.1 Right Ulnar Motor (Abd Dig Minimi) Wrist ? 3.3 7.4 A Elbow Wrist 6.0 29.0 48 A Elbow ? 9.3 8.3 B Elbow Wrist 4.1 21.0 51 B Elbow ? 7.4 7.0 F Wave Studies ?NR F-Lat (ms) L-R F-Lat (ms) Left Median (Mrkrs) (Abd Poll Brev) ? 32.34 2.22 Right Median (Mrkrs) (Abd Poll Brev) ? 30.12 2.22 Left Ulnar (Mrkrs) (Abd Dig Min) ? 29.87 0.04 Right Ulnar (Mrkrs) (Abd Dig Min) ? 29.82 0.04 Electromyography ?Side Muscle Nerve Root Ins Act Fibs Amp Dur Recrt Comment Right 1stDorInt Ulnar C8-T1 Nml Nml Nml Nml Nml Left 1stDorInt Ulnar C8-T1 Nml Nml Nml Nml Nml Right ABD Dig Min Ulnar C8-T1 Nml Nml Nml Nml Nml Left ABD Dig Min Ulnar C8-T1 Nml Nml Nml Nml Nml Left Abd Poll Brev Median C8-T1 Nml Nml Nml >12ms +1 Right Abd Poll Brev Median C8-T1 Nml Nml Nml >12ms +1 Right Abd Poll Long Radial (Post Int) C7-8 Nml Nml Nml Nml Nml Left Abd Poll Long Radial (Post Int) C7-8 Nml Nml Nml Nml Nml Left BrachioRad Radial C5-6 Nml Nml Nml Nml Nml Right BrachioRad Radial C5-6 Nml Nml Nml Nml Nml Right Ext Digitorum Radial (Post Int) C7-8 Nml Nml Nml Nml Nml Left Ext Digitorum Radial (Post Int) C7-8 Nml Nml Nml Nml Nml Left Ext Indicis Radial (Post Int) C7-8 Nml Nml Nml Nml Nml Right Ext Indicis Radial (Post Int) C7-8 Nml Nml Nml Nml Nml Left FlexPolLong Median (Ant Int) C7-8 Nml Nml Nml Nml Nml Right FlexPolLong Median (Ant Int) C7-8 Nml Nml Nml Nml Nml Right PronatorTeres Median C6-7 Nml Nml Nml Nml Nml Left PronatorTeres Median C6-7 Nml Nml Nml Nml Nml
--- OUTSIDE RECORDS SUMMARY | 2025-07-28 09:18 | XMS_ITS | Clinical Summary ---
Author Organization [facility] [address] [place] Address [address] [place] [id number] Care Team Providers Care Functional Architect Name Role Phone No, Physician Primary Care Provider [phone] Allergies No known active allergies Medications gabapentin [...] on file Legal Sex Male 6:02 AM POLICE INSPECTOR Gender Identity Not on file Sexual Orientation Not on file Last Filed Vital Signs Vital Sign Reading Time Taken Comments Blood Pressure 141/101 07/20/2024 11:31 AM POLICE INSPECTOR Pulse 93 07/20/2024 11:31 AM POLICE INSPECTOR Temperature 36.2 C (97.2 F) 07/20/2024 11:31 AM POLICE INSPECTOR Respiratory Rate 18 07/20/2024 11:31 AM POLICE INSPECTOR Oxygen Saturation 99% 07/20/2024 11:31 AM POLICE INSPECTOR Inhaled Oxygen Concentration - - Weight 85.7 kg (189 lb) 07/20/2024 11:31 AM POLICE INSPECTOR Height 167.6 cm (5' 6) 07/20/2024 11:31 AM POLICE INSPECTOR Body Mass Index 30.51 07/20/2024 11:31 AM POLICE INSPECTOR Plan of Treatment Health Maintenance Due Date [...] patient's age to complete this topic Insurance [facility] CHOICE PLUS [facility] CHOICE PLUS Care Teams Functional Architect Relationship Specialty Start Date End Date No, Physician PCP - General 09/18/21
--- OUTSIDE RECORDS SUMMARY | 2025-07-28 09:18 | XMS_ITS | Clinical Summary ---
Author Organization [facility] [employer] Address [address] [place] [address] Care Team Providers Care Principal Systems Architect Name Role Phone Fortino White MD Primary Care Provider [phone] Source Comments [facility] [facility],non-owned Affiliates and Associated Physician Practices is amultiple site organization consisting of ambulatory clinics and hospital sitesin [place], [place], [place] and [place]. This disclosure is being madepursuant to the Care Everywhere program and may not contain all information available regarding this patient. Last updated 18.[facility] Allergies No known active allergies Medications * [...] DEPRESSION SCREENING 08/26/2024 COVID-19 VACCINE (1 - 2024-2 6 season) 2025 INFLUENZA VACCINE (#1) 2025 06/13/2016 [...] to complete this topic Insurance Care Teams Principal Systems Architect Relationship Specialty Start Date End Date Fortino White MD [address] [place] [address] PCP - General Family Medicine 06/13/16
== END 2025-07-28 08:46 | disposition home or self-care (01) ==
LOC: ANHNEURO 08:47
PROVIDERS: PCP Family Medicine
DX: G56.03 Carpal tunnel syndrome, bilateral upper limbs (principal); G56.23 Lesion of ulnar nerve, bilateral upper limbs; E11.9 Type 2 diabetes mellitus without complications
CPT/HCPCS: 95886; 95911